=== PATIENT | female | born 1970 | race Hispanic/Latino ===

== ENCOUNTER 2019-10-17 22:05 | Inpatient (IN) | payer SELFPAY, OTHER ==
[~2019-10-17] VITALS: Ht 154.9 cm; Wt 78.9 kg
[2019-10-17] MEDS ORDERED: ONDANSETRON HCL INJ 2MG/ML 2ML 2 MG/ML VIAL IV STA (22:08)
[2019-10-17] MEDS ORDERED: SODIUM CHLORIDE 0.9% 1000ML 1,000 ML IV STA (22:08)
[2019-10-17] MEDS ORDERED: MORPHINE SULFATE INJ 4 MG/ML INJ 1ML IV STA (22:08)
--- OUTSIDE RECORDS SUMMARY | 2019-10-17 22:08 | XMS REPORT ---
Author Author [facility] Address Unknown Phone Unavailable Care Team Providers Care Instructional Media Services Technician Name Role Phone Unavailable Unavailable Payers Payer Name Policy Type Policy Number Effective Date Expiration Date Problems This patient has no known problems. Allergies, Adverse Reactions, Alerts Allergy Name Allergy Type Status Severity Reaction(s) Onset Date Inactive Date Treating Clinician Comments No Known Allergies DA Active U 2014-10-27 00:00:00 Medications This patient has no known medications. Results Test Description Test Time Test Comments Text Results Atomic Results Result Comments URINALYSIS COMPLETE 2019-08-15 22:24:00 UA COLOR (test code=COLU) YELLOW YELLOW UA APPEARANCE (test code=APPU) CLEAR CLEAR UA GLUCOSE DIPSTICK (test code=DGLUU) NEGATIVE mg/dL NEGATIVE UA BILIRUBIN DIPSTICK (test code=BILU) NEGATIVE mg/dL NEGATIVE UA KETONE DIPSTICK (test code=KETU) 10 (1+) mg/dL NEGATIVE UA SPECIFIC GRAVITY (test code=SGU) 1.037 1.001-1.035 UA BLOOD DIPSTICK (test code=AMINAH) Negative mg/dL NEGATIVE UA PH DIPSTICK (test code=RAFAEL) 5.5 5.0-8.0 UA PROTEIN DIPSTICK (test code=PROU) 50 (1+) mg/dL NEGATIVE UA UROBILINIOGEN DIPSTICK (test code=URO) 2.0 (1+) mg/dL NEGATIVE UA NITRITE DIPSTICK (test code=JENNIE) NEGATIVE NEGATIVE UA LEUKOCYTE ESTERASE W REFLEX (test code=LEUUR) 75 Vilma/uL (1+) Vilma/uL NEGATIVE UA WBC (test code=WBCU) 11-20 per HPF 0-5 UA RBC (test code=RBCU) 3-5 #/HPF 0-5 UA EPITHELIAL CELLS (test code=EPIU) FEW per HPF FEW UA BACTERIA (test code=BACU) NONE SEEN #/HPF NONE UA HYALINE CAST (test code=HYALU) >20 #/LPF 0-5 UA MUCUS (test code=MUCU) MANY #/LPF FEW UA AMORPHOUS SEDIMENT (test code=AMORU) FEW #/LPF NONE Urine Source? Clean CatchDRUGS OF ABUSE SCREEN [id number] 22:24:00* Test Item Value Reference Range Comments URN COCAINE (test code=COCAURN) NEGATIVE <300 ng/mL URN CANNABINOIDS (test code=CANNABURN) NEGATIVE <50 ng/mL URN AMPHETAMINE (test code=AMPHETURN) NEGATIVE <1000 ng/mL URN BARBITURATE (test code=BARBITURN) NEGATIVE <200 ng/mL URN BENZODIAZEPINE (test code=BENZOURN) NEGATIVE <200 ng/mL URN OPIATES (test code=OPIATURN) NEGATIVE <300 ng/mL URN PHENCYCLIDINE (PCP) (test code=PHENCURN) NEGATIVE <25 ng/mL URN METHADONE (test code=METHAURN) NEGATIVE <300 ng/mL Urine Source? Clean CatchURINALYSIS [id number] 22:00:00* Test Item Value Reference Range Comments UA COLOR (test code=COLU) YELLOW YELLOW UA APPEARANCE (test code=APPU) CLEAR CLEAR UA GLUCOSE DIPSTICK (test code=DGLUU) NEGATIVE mg/dL NEGATIVE UA BILIRUBIN DIPSTICK (test code=BILU) NEGATIVE mg/dL NEGATIVE UA KETONE DIPSTICK (test code=KETU) 10 (1+) mg/dL NEGATIVE UA SPECIFIC GRAVITY (test code=SGU) 1.037 1.001-1.035 UA BLOOD DIPSTICK (test code=AMINAH) Negative mg/dL NEGATIVE UA PH DIPSTICK (test code=RAFAEL) 5.5 5.0-8.0 UA PROTEIN DIPSTICK (test code=PROU) 50 (1+) mg/dL NEGATIVE UA UROBILINIOGEN DIPSTICK (test code=URO) 2.0 (1+) mg/dL NEGATIVE UA NITRITE DIPSTICK (test code=JENNIE) NEGATIVE NEGATIVE UA LEUKOCYTE ESTERASE W REFLEX (test code=LEUUR) 75 Vilma/uL (1+) Vilma/uL NEGATIVE UA WBC (test code=WBCU) 11-20 per HPF 0-5 UA RBC (test code=RBCU) 3-5 #/HPF 0-5 UA EPITHELIAL CELLS (test code=EPIU) FEW per HPF FEW UA BACTERIA (test code=BACU) NONE SEEN #/HPF NONE UA HYALINE CAST (test code=HYALU) >20 #/LPF 0-5 UA MUCUS (test code=MUCU) MANY #/LPF FEW UA AMORPHOUS SEDIMENT (test code=AMORU) FEW #/LPF NONE Urine Source? Clean CatchDRUGS OF ABUSE SCREEN [id number] 22:00:00* Test Item Value Reference Range Comments URN COCAINE (test code=COCAURN) <300 ng/mL URN CANNABINOIDS (test code=CANNABURN) <50 ng/mL URN AMPHETAMINE (test code=AMPHETURN) <1000 ng/mL URN BARBITURATE (test code=BARBITURN) <200 ng/mL URN BENZODIAZEPINE (test code=BENZOURN) <200 ng/mL URN OPIATES (test code=OPIATURN) <300 ng/mL URN PHENCYCLIDINE (PCP) (test code=PHENCURN) <25 ng/mL URN METHADONE (test code=METHAURN) <300 ng/mL Urine Source? Clean CatchBASIC METABOLIC [id number] 21:25:00* Test Item Value Reference Range Comments SODIUM (test code=NA) 143 mmol/L 136-145 POTASSIUM (test code=K) 4.0 mmol/L 3.5-5.1 CHLORIDE (test code=CL) 110.0 mmol/L 98-107 CARBON DIOXIDE (test code=CO2) 27.0 mmol/L 21-32 ANION GAP (test code=GAP) 10.0 10-20 GLUCOSE (test code=GLU) 122 mg/dL 74-106 BLOOD UREA NITROGEN (test code=BUN) 16 mg/dL 7-18 GLOMERULAR FILTRATION RATE (test code=GFR) > 60 mL/min >=60 Estimated GFR by using Modified MDRD formula.Chronic kidney disease is defined as either kidney damageor GFR <60 mL/min/1.73 m2 for >3 months. CREATININE (test code=CREAT) 0.90 mg/dL 0.55-1.02 Note change in reference range due to change in reagent. BUN/CREATININE RATIO (test code=BUN/CREA) 17.8 10-20 CALCIUM (test code=CA) 9.6 mg/dL 8.5-10.1 HEPATIC FUNCTION [id number] 21:25:00* Test Item Value Reference Range Comments TOTAL PROTEIN (test code=PROT) 7.7 gram/dL 6.4-8.2 ALBUMIN (test code=ALB) 3.8 g/dL 3.4-5.0 GLOBULIN (test code=GLOB) 3.9 gram/dL 2.7-4.2 ALBUMIN/GLOBULIN RATIO (test code=A/G) 1.0 0.75-1.50 BILIRUBIN TOTAL (test code=BILT) 1.20 mg/dL 0.0-1.0 BILIRUBIN DIRECT (test code=BILD) 0.19 mg/dL 0.0-0.20 SGOT/AST (test code=AST) 13 IUnit/L 15-37 SGPT/ALT (test code=ALT) 22 IUnit/L 12-78 ALKALINE PHOSPHATASE TOTAL (test code=ALKP) 91 IUnit/L 45-117 Note change in reference range due to change in reagent. [id number] 21:25:00* Test Item Value Reference Range Comments LIPASE (test code=LIP) 94 U/L 73.0-393.0 HCG SERUM [id number] 21:25:00* Test Item Value Reference Range Comments HCG SERUM QUAL (test code=HCGQL) NEGATIVE NEGATIVE This HCGQL test is NOT applicable for MALE patients.Check with nurse about probable order error.If Tumor Marker Test needed, nurse should order test "HCGTU"(Test #550.06567) [id number] 21:25:00* Test Item Value Reference Range Comments ALCOHOL (test code=ALC) 3 mg/dL 0.0-3.0 INTERPRETIVE DATA NOTE: POSITIVE SCREENING RESULTS SHOULD BE CONSIDERED PRESUMPTIVE.WHEN COLLECTED FOR MEDICAL PURPOSES ONLY. SPECIMEN WILL NOTBE COLLECTED BY CHAIN OF CUSTODY.IF A CONFIRMATION OF POSITIVE RESULTS IS DESIRED, ACONFIRMATION TEST MUST BE REQUESTED BY THE PHYSICIAN AT ANADDITIONAL CHARGE TO THE PATIENT. BASIC METABOLIC [id number] 21:11:00* Test Item Value Reference Range Comments SODIUM (test code=NA) 143 mmol/L 136-145 POTASSIUM (test code=K) 4.0 mmol/L 3.5-5.1 CHLORIDE (test code=CL) 110.0 mmol/L 98-107 CARBON DIOXIDE (test code=CO2) mmol/L 21-32 ANION GAP (test code=GAP) 10-20 GLUCOSE (test code=GLU) mg/dL 74-106 BLOOD UREA NITROGEN (test code=BUN) mg/dL 7-18 GLOMERULAR FILTRATION RATE (test code=GFR) mL/min >=60 CREATININE (test code=CREAT) mg/dL 0.55-1.02 BUN/CREATININE RATIO (test code=BUN/CREA) 10-20 CALCIUM (test code=CA) mg/dL 8.5-10.1 HEPATIC FUNCTION [id number] 21:11:00* Test Item Value Reference Range Comments TOTAL PROTEIN (test code=PROT) gram/dL 6.4-8.2 ALBUMIN (test code=ALB) g/dL 3.4-5.0 GLOBULIN (test code=GLOB) gram/dL 2.7-4.2 ALBUMIN/GLOBULIN RATIO (test code=A/G) 0.75-1.50 BILIRUBIN TOTAL (test code=BILT) mg/dL 0.0-1.0 BILIRUBIN DIRECT (test code=BILD) mg/dL 0.0-0.20 SGOT/AST (test code=AST) IUnit/L 15-37 SGPT/ALT (test code=ALT) IUnit/L 12-78 ALKALINE PHOSPHATASE TOTAL (test code=ALKP) IUnit/L 45-117 [id number] 21:11:00* Test Item Value Reference Range Comments LIPASE (test code=LIP) U/L 73.0-393.0 HCG SERUM [id number] 21:11:00* Test Item Value Reference Range Comments HCG SERUM QUAL (test code=HCGQL) NEGATIVE NEGATIVE This HCGQL test is NOT applicable for MALE patients.Check with nurse about probable order error.If Tumor Marker Test needed, nurse should order test "HCGTU"(Test #550.59918) [id number] 21:11:00* Test Item Value Reference Range Comments ALCOHOL (test code=ALC) mg/dL 0-3 BASIC METABOLIC [id number] 21:07:00* Test Item Value Reference Range Comments SODIUM (test code=NA) 143 mmol/L 136-145 POTASSIUM (test code=K) 4.0 mmol/L 3.5-5.1 CHLORIDE (test code=CL) 110.0 mmol/L 98-107 CARBON DIOXIDE (test code=CO2) mmol/L 21-32 ANION GAP (test code=GAP) 10-20 GLUCOSE (test code=GLU) mg/dL 74-106 BLOOD UREA NITROGEN (test code=BUN) mg/dL 7-18 GLOMERULAR FILTRATION RATE (test code=GFR) mL/min >=60 CREATININE (test code=CREAT) mg/dL 0.55-1.02 BUN/CREATININE RATIO (test code=BUN/CREA) 10-20 CALCIUM (test code=CA) mg/dL 8.5-10.1 HEPATIC FUNCTION [id number] 21:07:00* Test Item Value Reference Range Comments TOTAL PROTEIN (test code=PROT) gram/dL 6.4-8.2 ALBUMIN (test code=ALB) g/dL 3.4-5.0 GLOBULIN (test code=GLOB) gram/dL 2.7-4.2 ALBUMIN/GLOBULIN RATIO (test code=A/G) 0.75-1.50 BILIRUBIN TOTAL (test code=BILT) mg/dL 0.0-1.0 BILIRUBIN DIRECT (test code=BILD) mg/dL 0.0-0.20 SGOT/AST (test code=AST) IUnit/L 15-37 SGPT/ALT (test code=ALT) IUnit/L 12-78 ALKALINE PHOSPHATASE TOTAL (test code=ALKP) IUnit/L 45-117 [id number] 21:07:00* Test Item Value Reference Range Comments LIPASE (test code=LIP) U/L 73.0-393.0 HCG SERUM [id number] 21:07:00* Test Item Value Reference Range Comments HCG SERUM QUAL (test code=HCGQL) NEGATIVE [id number] 21:07:00* Test Item Value Reference Range Comments ALCOHOL (test code=ALC) mg/dL 0-3 CBC W/O [id number] 21:02:00* Test Item Value Reference Range Comments WHITE BLOOD CELL (test code=WBC) 8.5 K/mm3 4.5-12.5 RED BLOOD CELL (test code=RBC) 5.01 mill/mm3 3.7-5.2 HEMOGLOBIN (test code=HGB) 13.8 gram/dL 11.5-15.5 HEMATOCRIT (test code=HCT) 41.7 % 36.0-46.0 MEAN CELL VOLUME (test code=MCV) 83.2 fL 80-98 MEAN CELL HGB (test code=MCH) 27.5 picogram 27.0-33.0 MEAN CELL HGB CONCETRATION (test code=MCHC) 33.1 gram/dL 33.0-36.0 RED CELL DISTRIBUTION WIDTH (test code=RDW) 13.0 % 11.6-16.2 PLATELET COUNT (test code=PLT) 284 K/mm3 150-450 MEAN PLATELET VOLUME (test code=MPV) 10.2 fL 6.7-11.0 CBC W/O [id number] 21:01:00* Test Item Value Reference Range Comments WHITE BLOOD CELL (test code=WBC) K/mm3 4.5-12.5 RED BLOOD CELL (test code=RBC) mill/mm3 3.7-5.2 HEMOGLOBIN (test code=HGB) 13.8 gram/dL 11.5-15.5 HEMATOCRIT (test code=HCT) 41.7 % 36.0-46.0 MEAN CELL VOLUME (test code=MCV) fL 80-98 MEAN CELL HGB (test code=MCH) picogram 27.0-33.0 MEAN CELL HGB CONCETRATION (test code=MCHC) gram/dL 33.0-36.0 RED CELL DISTRIBUTION WIDTH (test code=RDW) % 11.6-16.2 PLATELET COUNT (test code=PLT) K/mm3 150-450 MEAN PLATELET VOLUME (test code=MPV) fL 6.7-11.0
[2019-10-17] MEDS ORDERED: ASPIRIN 81 MG CHEW TAB PO ONE (22:15)
[2019-10-17 22:30] LABS: BASOPHILS # (AUTO) 0.1 (0.0-0.1); BASOPHILS % 0.3 % (0.0-1.0); EOSINOPHILS % 0.1 % (0.0-6.0); HEMATOCRIT 41.4 % (34.2-44.1); HEMOGLOBIN 14.2 g/dL (12.0-16.0); LYMPHOCYTES # (AUTO) 1.8 (1.0-3.2); LYMPHOCYTES % 12.2 % (18.0-39.1); MEAN CORPUSCULAR HEMOGLOBIN 27.8 pg (28-32); MEAN CORPUSCULAR HGB CONC 34.3 g/dL (31-35); MEAN CORPUSCULAR VOLUME 81.2 fL (81-99); MONOCYTES # (AUTO) 0.3 (0.2-0.8); MONOCYTES % 1.8 % (4.4-11.3); NEUTROPHILS # (AUTO) 12.7 (2.1-6.9); NEUTROPHILS % 85.2 % (38.7-80.0); PLATELET COUNT 225 x10e3/uL (140-360); RED CELL DISTRIBUTION WIDTH 12.7 % (11.7-14.4)
[2019-10-17 22:42] LABS: CLARITY,URINE CLEAR (CLEAR); COLOR,URINE YELLOW (YELLOW); LEUKOCYTE ESTERASE ,URINE NEGATIVE (NEGATIVE)
[2019-10-17 22:43] LABS: BILIRUBIN,URINE NEGATIVE (NEGATIVE); KETONES,URINE 2+ (NEGATIVE); NITRITE,URINE NEGATIVE (NEGATIVE); PROTEIN,URINE DIPSTICK 1+ (NEGATIVE); URINE UROBILINOGEN 0.2 mg/dL (0.2 - 1)
[2019-10-17 22:51] LABS: ALANINE AMINOTRANSFERASE 23 IU/L (0-55); ALBUMIN 4.3 g/dL (3.5-5.0); ALBUMIN/GLOBULIN RATIO 1.1 (0.8-2.0); ALKALINE PHOSPHATASE 126 IU/L (40-150); ANION GAP 18.9 mmol/L (8-16); BACTERIA,URINE FEW /HPF; BLOOD UREA NITROGEN 14 mg/dL (7-26); BUN/CREATININE RATIO 12 (6-25); CALCIUM 10.4 mg/dL (8.4-10.2); CARBON DIOXIDE 25 mmol/L (22-29); CHLORIDE 99 mmol/L (98-107); CREATINE KINASE 60 IU/L (29-168); EPITHELIAL CELLS,URINE MODERATE /LPF; EST GLOMERULAR FILTRATION RATE 48 ML/MIN (60-); LIPASE 95 U/L (8-78); POTASSIUM 3.9 mmol/L (3.5-5.1); SODIUM 139 mmol/L (136-145)
[2019-10-17 23:03] LABS: GLUCOSE 543 mg/dL (74-118)
[2019-10-17] MEDS ORDERED: HYDRALAZINE HCL 20 MG/ML VIAL IV STA (23:13)
[2019-10-17] MEDS ORDERED: SODIUM CHLORIDE 0.9% 50ML 50 ML ONE (23:31)
[2019-10-17] MEDS ORDERED: IOPAMIDOL 370 MG/ML 200 ML INFUS..BTL INJ ONE (23:32)
[2019-10-18] VITALS (10 sets, daily range): BP systolic 137–156; BP diastolic 80–99
[2019-10-18] MEDS ORDERED: INSULIN REGULAR, HUMAN 100 UNIT/1 ML 3ML VIAL IV ONE (00:15)
--- NOTE | 2019-10-18 00:21 | NUR ---
(Lenard) left phone number if needed. [phone].
--- NOTE | 2019-10-18 00:34 | Diagnostic Imaging Report ---
ADDENDUM #1 ADDENDUM: The findings at the origin of the SMA are felt to more likely represent eccentric noncalcified atherosclerotic plaque (sagittal image 78), however intraluminal thrombus is not excluded, particularly in the absence of other atherosclerotic findings in other vessels. There are no findings of pneumatosis or free air to suggest ischemia. Furthermore, the distal celiac, SMA branches and SURESH branches appear patent. Given the recent contrast load, suggest clinical correlation, and follow-up CTA if clinically indicated. The above findings were discussed with Dr. García on 10/18/2019 at approximately 1:30 AM. Signed by: Dr. Zohra Pretty MD on 10/19/2019 11:33 PM ORIGINAL REPORT EXAM: CT Abdomen and Pelvis WITH contrast INDICATION: Abdominal Pain, nausea, vomiting. COMPARISON: None. TECHNIQUE: Abdomen and pelvis were scanned utilizing a multidetector helical scanner from the lung base to the pubic symphysis after administration of IV contrast. Coronal and sagittal reformations were obtained. Routine protocol was performed. Scan was performed during portal venous phase. IV CONTRAST: 100 cc of Isovue-370 ORAL CONTRAST: Water COMPLICATIONS: None RADIATION DOSE: Total DLP: (DLP x 0.015 x size factor) mGy*cm Estimated effective dose: (DLP x 0.015 x size factor) mSv CTDIvol has been reviewed. It is below the limits set by the Radiation Protocol Committee (RPC). FINDINGS: LINES and TUBES: None. LOWER THORAX: Mild linear atelectasis in the lingula. HEPATOBILIARY: Diffuse mild hepatic steatosis. Hepatomegaly. No evidence of focal lesion. No biliary ductal dilation. GALLBLADDER: No radio-opaque stones or sludge. No wall thickening. SPLEEN: No splenomegaly. PANCREAS: No focal masses or ductal dilatation. ADRENALS: No adrenal nodules KIDNEYS/URETERS: Kidneys enhance symmetrically. No evidence of hydronephrosis, solid mass, or stone. GI TRACT: No bowel obstruction. Decompression of jejunal loops with possible mild wall thickening. Decompressed colon. Appendix is normal. PELVIC ORGANS/BLADDER: Unremarkable. LYMPH NODES: No lymphadenopathy. VESSELS: There is a common origin of the celiac artery and SMA with noncalcified eccentric plaque at the origin/proximal aspect of the common trunk, resulting in moderate stenosis of the common trunk and origin of the SMA. The distal branches appear patent. The SURESH is patent. PERITONEUM / RETROPERITONEUM: No free air or fluid. BONES AND SOFT TISSUES: No acute osseous abnormality. Degenerative disc at T12-L1. CONCLUSION: Possible mild wall thickening in jejunal loops, which may represent infectious or inflammatory enteritis. Common origin of the celiac artery and SMA with likely noncalcified plaque at the origin/proximally, resulting in moderate stenosis at the common trunk and origin of the SMA. Hepatomegaly with hepatic steatosis. Signed by: Dr. Zohra Pretty MD on 10/18/2019 12:30 AM
[2019-10-18] MEDS ORDERED: HYDROMORPHONE 1MG/1ML INJ IV STA (00:54)
[2019-10-18] MEDS ORDERED: ONDANSETRON HCL INJ 2MG/ML 2ML 2 MG/ML VIAL IV STA (00:54)
[2019-10-18] MEDS ORDERED: SODIUM CHLORIDE 0.9% 1000ML 1,000 ML IV STA (00:55)
[2019-10-18] MEDS ORDERED: SODIUM CHLORIDE 0.9% 1000ML 1,000 ML IV ONE (01:00)
[2019-10-18] MEDS ORDERED: DEXTROSE 50% SYRINGE 50 ML IV PRN ×5 (01:00→09:15)
[2019-10-18] MEDS ORDERED: ASPIRIN 81 MG CHEW TAB PO ONE (01:00)
[2019-10-18] MEDS ORDERED: HYDROMORPHONE 1MG/1ML INJ ONE (01:13)
[2019-10-18] MEDS: PIPER-TAZ 3.375 GM 50 ML IV SCH ×5 (01:13→22:12)
[2019-10-18] MEDS: SODIUM CHLORIDE 0.9% 1000ML 1,000 ML IV SCH ×4 (01:38→20:03)
[2019-10-18] MEDS ORDERED: HYDRALAZINE HCL 20 MG/ML VIAL IV PRN (01:45)
--- NOTE | 2019-10-18 01:53 | NUR ---
Patient states she is a Yarsanism and cannot recieve blood products.
[2019-10-18] MEDS: MORPHINE SULFATE INJ 4 MG/ML INJ 1ML IV PRN ×5 (03:21→21:35)
[2019-10-18 06:07] LABS: CREATINE KINASE MB 1.6 ng/mL (0-5.0)
[2019-10-18 07:03] LABS: CHOL/HDL RATIO 7.2 (3.0-3.6); CHOLESTEROL 188 MD/DL (0-199); HDL CHOLESTEROL 26 MG/DL (40-60); TRIGLYCERIDES 654 MG/DL (0-149)
--- NOTE | 2019-10-18 07:14 | NUR ---
informed Dr. Jordan that patient c/o severe pain unrelieved by medication, orders received and entered
[2019-10-18] MEDS ORDERED: INSULIN REGULAR, HUMAN 100 UNIT/1 ML 3ML VIAL SQ SCH ×3 (07:30→11:30)
[2019-10-18 07:57] LABS: BASOPHILS % 0.2 % (0.0-1.0); HEMATOCRIT 41.7 % (34.2-44.1); LYMPHOCYTES # (AUTO) 1.1 (1.0-3.2); LYMPHOCYTES % 6.3 % (18.0-39.1); MEAN CORPUSCULAR HEMOGLOBIN 27.5 pg (28-32); MEAN CORPUSCULAR HGB CONC 33.6 g/dL (31-35); MEAN CORPUSCULAR VOLUME 81.9 fL (81-99); MONOCYTES # (AUTO) 0.4 (0.2-0.8); MONOCYTES % 2.1 % (4.4-11.3); NEUTROPHILS # (AUTO) 16.2 (2.1-6.9); NEUTROPHILS % 90.8 % (38.7-80.0); PLATELET COUNT 186 x10e3/uL (140-360); RED BLOOD COUNT 5.09 x10e6/uL (3.6-5.1); RED CELL DISTRIBUTION WIDTH 13.2 % (11.7-14.4)
[2019-10-18 08:24] LABS: ANION GAP 21.4 mmol/L (8-16); CALCIUM 9.6 mg/dL (8.4-10.2); CREATININE, SERUM 1.12 mg/dL (0.57-1.11); POTASSIUM 4.4 mmol/L (3.5-5.1)
--- NOTE | 2019-10-18 08:29 | History and Physical ---
CHIEF COMPLAINT: This is a 49-year-old, who comes in with abdominal pain. HISTORY OF PRESENTING ILLNESS: Ms. Blanchard with a history of uncontrolled diabetes mellitus, hyperlipidemia, hypertension, bipolar disease, was in her usual state of health until about the day prior to admission. The patient started to have abdominal pain, intractable in nature, about 8/10 in intensity. The patient did not have any rectal bleed. She did have some diarrhea after coming to the ER, but abdominal pain still continues with morphine on hand. PAST MEDICAL HISTORY: History of uncontrolled diabetes mellitus. The patient has had diabetes for the last 17 years and controlled, was taking metformin for diabetes, has decided to stopped about a year ago because of funding status. The patient also was on cholesterol medication, name unknown, but again stopped because of side effects of headache. The patient also was on bipolar medicine, Zyprexa, and she has been taking this for the last 1 month, which has made her sugars go up. PAST SURGICAL HISTORY: Noncontributory. SOCIAL HISTORY: No EtOH. No IV drug abuse. She is and has 4 children. No history of smoking history either. FAMILY HISTORY: Positive for diabetes in the family and hypertension in the family. REVIEW OF SYSTEMS: Negative for chest pain. No shortness of breath. No nausea. No vomiting. Positive for diarrhea. No constipation. No rectal bleeding. Abdominal pain as mentioned above. No headache. No diplopia. No blurry vision. Positive for thirst in excess of polyuria. PHYSICAL EXAMINATION: VITAL SIGNS: Temperature 97.2, pulse of 71, respirations of 14, blood pressure is 140/92. HEENT: Normocephalic and atraumatic. Pupils are reactive. CVS: S1 and S2 are normal. Regular rate and rhythm. ABDOMEN: Tender in the suprapubic area, in the periumbilical area, left lower quadrant, also in the epigastric area. EXTREMITIES: No clubbing. No cyanosis. No edema. The patient also has reported use of ceviche in excess right before this particular incident started. LABORATORY VALUES: White count is 14,000, hemoglobin of 14.2, hematocrit of 41.4. Chemistry shows sodium of 139, potassium of 3.9, BUN of 14, creatinine of 1.20, glucose of 543, bicarb was normal at 14. Troponin was less than 0.01. LDL and HDL have been ordered and lipase is 95. The patient's A1c will also be ordered. IMAGING STUDIES: Abdominal CT and pelvis CT shows possible mild wall thickening in the jejunal loops, which represent infectious or inflammatory enteritis. Common origin of the celiac artery and SMA with likely noncalcified plaque in the proximal resulting in moderate stenosis of the common trunk at the origin of SMA. Hepatomegaly with hepatic steatosis. ASSESSMENT: Ms. Lo Bentley with: 1. Colitis, presumably inflammatory versus infectious versus ischemic colitis. 2. Reflux esophagitis. We will continue with IV Protonix twice a day. The patient is also on Zosyn at this time q.6 hours. 3. For her insulin, I will put her on insulin glargine 18 units q.12 hours and also she is on a monitor with sliding scale. Hydralazine 10 mg q.4 hours has been given as needed for renal pathology for acute renal failure. Fluid resuscitation, we will do. We will continue to monitor the patient. Consults have been placed for Dr. David Pisano, Gastroenterology; Dr. Domingo, Surgery; and also a Cardiothoracic Surgery consult with Dr. Madison has been placed. Plan will be to check her A1c. Check her lipid panel, put on Protonix. Continue with Zosyn and pain control with morphine 4 mg q.4. further recommendation per clinical course. We will keep her in the IMCU. MD EVE MariaJ/MODL /[id number]
[2019-10-18] MEDS: PANTOPRAZOLE 40 MG 10ML VIAL IV SCH ×2 (08:56→16:54)
[2019-10-18] MEDS ORDERED: INSULIN GLARGINE 100 UNITS/ML VIAL SQ SCH (09:00)
[2019-10-18] MEDS: INSULIN GLARGINE 100 UNITS/ML VIAL SQ SCH ×2 (09:03→21:05)
[2019-10-18] MEDS: ONDANSETRON HCL INJ 2MG/ML 2ML 2 MG/ML VIAL IV PRN ×3 (10:50→21:35)
--- NOTE | 2019-10-18 10:54 | Consultation ---
DATE OF CONSULTATION: 10/18/2019 CHIEF COMPLAINT: Abdominal pain, vomiting. HISTORY OF PRESENT ILLNESS: The patient is a 49-year-old female with 1-day history of pain in epigastric region with intractable vomiting without hematemesis. The patient has had some loose stool, but denies fever or chills. She had no prior episode to this. No family member with the same symptoms. PAST MEDICAL HISTORY: Positive for metabolic syndrome, polycystic ovary disease, bipolar disorder. PAST SURGICAL HISTORY: Unremarkable. SOCIAL HABITS: She does not smoke or drink. REVIEW OF SYSTEMS: No chest pain, shortness of breath, or cough. PHYSICAL EXAMINATION: VITAL SIGNS: Stable, afebrile. GENERAL: She is awake, alert, in moderate discomfort. HEENT: Sclerae, anicteric. NECK: Supple. LUNGS: Clear. HEART: Regular rate and rhythm. ABDOMEN: Soft with guarding tenderness in epigastric region with no rebound. EXTREMITIES: No cyanosis or edema. LABORATORY DATA: White cell count is 17,000, hemoglobin of 14, and platelet count 186. Glucose 49, creatinine 1.1. Liver function tests are unremarkable with lipase 95. CT scan showed mild wall thickening of the jejunal loops, suggestive of an enteritis with findings of calcification at the origin of the celiac and SMA with patent distal branches. ASSESSMENT: Epigastric discomfort, vomiting likely enteritis in nature, infectious versus inflammatory. No evidence of chronic mesenteric ischemia by history. PLAN: IV hydrations. Monitored symptoms with GI consultation. MD KIMBERLEE Jones/LEIF /[id number]
[2019-10-18] MEDS: METRONIDAZOLE 500MG/NS 100ML 100 ML IV SCH ×3 (11:18→21:43)
--- NOTE | 2019-10-18 11:45 | NUR ---
per [employer] Consultant, informed that MRA abdomen can not be done at this time due to contrast given for previous CT not within time frame per Dr. Shaw called Dr. Sabina Pisano and informed that exam can not be done at this time, informed by automobile mechanic radiator that exam has been cancelled at this time and MD aware, patient scheduled for CT ABD/pelvis in am, no new orders at this time
[2019-10-18] MEDS: INSULIN REGULAR, HUMAN 100 UNIT/1 ML 3ML VIAL SQ SCH ×2 (12:25→18:14)
--- NOTE | 2019-10-18 19:35 | NUR ---
RECEIVED REPORT FROM [facility] NURSE- PATIENT TRANSFERRED TO [place] [address] ROOM 290 FROM [facility] RM 197. PATIENT IS IN STABLE CONDITION WITH NO S/S OF RESPIRATORY DISTRESS. TELEMETRY APPLIED. CALL LIGHT IS WITHIN REACH, PATIENT INSTRUCTED TO CALL FOR ASSISTANCE NEEDED. BEDSIDE SHIFT REPORT GIVEN TO ONCOMING NURSE.
[2019-10-18 20:18] LABS: HEMATOCRIT 42.5 % (34.2-44.1); HEMOGLOBIN 14.3 g/dL (12.0-16.0); LYMPHOCYTES # (AUTO) 1.5 (1.0-3.2); MEAN CORPUSCULAR HGB CONC 33.6 g/dL (31-35); MEAN CORPUSCULAR VOLUME 83.2 fL (81-99); MONOCYTES # (AUTO) 0.6 (0.2-0.8); NEUTROPHILS # (AUTO) 15.9 (2.1-6.9); PLATELET COUNT 199 x10e3/uL (140-360); RED BLOOD COUNT 5.11 x10e6/uL (3.6-5.1); RED CELL DISTRIBUTION WIDTH 13.9 % (11.7-14.4)
[2019-10-18 20:39] LABS: ALBUMIN/GLOBULIN RATIO 1.1 (0.8-2.0); ANION GAP 15.5 mmol/L (8-16); CALCIUM 9.4 mg/dL (8.4-10.2); CREATININE, SERUM 1.06 mg/dL (0.57-1.11); POTASSIUM 3.5 mmol/L (3.5-5.1)
[2019-10-18] MEDS ORDERED: LACTATED RINGER'S 1,000 ML ONE (21:10)
[2019-10-18] MEDS ORDERED: LACTATED RINGER'S 1,000 ML IV ONE (21:15)
[2019-10-19] VITALS (22 sets, daily range): BP systolic 126–155; BP diastolic 77–97
[2019-10-19] MEDS: INSULIN REGULAR, HUMAN 100 UNIT/1 ML 3ML VIAL SQ SCH ×4 (00:20→18:03)
[2019-10-19] MEDS: MORPHINE SULFATE INJ 4 MG/ML INJ 1ML IV PRN ×4 (01:32→18:00)
[2019-10-19] MEDS: ONDANSETRON HCL INJ 2MG/ML 2ML 2 MG/ML VIAL IV PRN ×3 (01:32→10:13)
[2019-10-19] MEDS: METRONIDAZOLE 500MG/NS 100ML 100 ML IV SCH ×3 (04:59→17:58)
[2019-10-19] MEDS: PIPER-TAZ 3.375 GM 50 ML IV SCH ×3 (05:35→17:58)
[2019-10-19 06:13] LABS: BASOPHILS % 0.2 % (0.0-1.0); EOSINOPHILS # (AUTO) 0.1 (0.0-0.4); EOSINOPHILS % 0.4 % (0.0-6.0); HEMATOCRIT 39.1 % (34.2-44.1); LYMPHOCYTES # (AUTO) 1.5 (1.0-3.2); LYMPHOCYTES % 8.2 % (18.0-39.1); MEAN CORPUSCULAR HGB CONC 33.2 g/dL (31-35); MEAN CORPUSCULAR VOLUME 84.3 fL (81-99); MONOCYTES % 5.3 % (4.4-11.3); NEUTROPHILS # (AUTO) 15.7 (2.1-6.9); NEUTROPHILS % 85.4 % (38.7-80.0); PLATELET COUNT 173 x10e3/uL (140-360); RED BLOOD COUNT 4.64 x10e6/uL (3.6-5.1)
[2019-10-19 06:34] LABS: ALANINE AMINOTRANSFERASE 59 IU/L (0-55); ALBUMIN 3.5 g/dL (3.5-5.0); ALKALINE PHOSPHATASE 89 IU/L (40-150); ANION GAP 11.2 mmol/L (8-16); BLOOD UREA NITROGEN 18 mg/dL (7-26); BUN/CREATININE RATIO 22 (6-25); CALCIUM 9.2 mg/dL (8.4-10.2); CARBON DIOXIDE 24 mmol/L (22-29); CHLORIDE 110 mmol/L (98-107); CREATININE, SERUM 0.83 mg/dL (0.57-1.11); EST GLOMERULAR FILTRATION RATE > 60 ML/MIN (60-); GLUCOSE 287 mg/dL (74-118); POTASSIUM 3.2 mmol/L (3.5-5.1); SODIUM 142 mmol/L (136-145)
[2019-10-19 07:05] LABS: CLARITY,URINE CLEAR (CLEAR); COLOR,URINE YELLOW (YELLOW); KETONES,URINE 2+ (NEGATIVE); LEUKOCYTE ESTERASE ,URINE NEGATIVE (NEGATIVE); NITRITE,URINE NEGATIVE (NEGATIVE); PROTEIN,URINE DIPSTICK 2+ (NEGATIVE); URINE UROBILINOGEN 0.2 mg/dL (0.2 - 1)
[2019-10-19 07:06] LABS: BILIRUBIN,URINE NEGATIVE (NEGATIVE)
[2019-10-19 07:26] LABS: BACTERIA,URINE FEW /HPF; EPITHELIAL CELLS,URINE FEW /LPF; RBC,URINE 0-5 /HPF (0-5); WBC,URINE (MAN) 0-5 /HPF (0-5)
--- NOTE | 2019-10-19 07:40 | NUR ---
PATIENT IS AWAKE, ALERT, AND AMBULATING IN HER ROOM. THE PATIENT IS IN STABLE CONDITION WITH NO S/S OF RESPIRATORY DISTRESS. PATIENT C/O UTERUS PAIN 3 AND IS NOT WANTING PAIN MEDICATION AT THIS TIME. TELEMETRY APPLIED. CALL LIGHT IS WITHIN REACH, PATIENT INSTRUCTED TO CALL FOR ASSISTANCE NEEDED.
--- NOTE | 2019-10-19 08:03 | Progress Note ---
DATE: SUBJECTIVE: The patient is admitted to the hospital with acute enteritis, possible ischemic colitis, but the patient does not have any symptoms of ischemic colitis besides pain. No chest pain or shortness of breath. Continues to have some abdominal pain. OBJECTIVE: VITAL SIGNS: Temperature is 98.7, T-max is 99.1 on 10/19/2019 at 0:00 a.m., pulse of 92, blood pressure is 152/77, respiratory rate of 20. HEENT: Normocephalic and atraumatic. CVS: S1 and S2 normal. Regular rate and rhythm. LUNGS: Clear to auscultation. ABDOMEN: Tender in the epigastrium and in the periumbilical area. EXTREMITIES : No clubbing. No cyanosis. No edema. MEDICATIONS: The patient is on morphine sulfate for pain control every 3 hours, Zosyn, metronidazole, pantoprazole, hydralazine as needed for control of blood pressure. She is kept n.p.o. at this time. LABORATORY VALUES: White count is about 18,000, hemoglobin of 13, hematocrit of 39.1, neutrophil count is still elevated at 85, but trending down. Chemistries; BUN of 18, creatinine 0.83, chloride is 110, total bilirubin is 2.5, elevated at 71 and 59. Troponin is negative. ASSESSMENT: Ms. Lo Bentley with. 1. Enteritis. 2. Questionable ischemic colitis. 3. Hypertension. 4. Uncontrolled diabetes mellitus. 5. Hyperlipidemia. PLAN: Continue monitoring the patient's glucose. Antibiotic has been ordered and administered. Trend her LFTs on a regular basis for elevated LFTs and continue to monitor the patient's pain and observing the patient has consultants on board, Dr. David Pisano, Dr. Domingo, and Dr. Madison. Further recommendation per clinical course. We will continue to monitor the patient. MD HERBERT Maria/BARRERAL /[id number]
[2019-10-19] MEDS: INSULIN GLARGINE 100 UNITS/ML VIAL SQ SCH ×2 (08:18→21:00)
[2019-10-19] MEDS: PANTOPRAZOLE 40 MG 10ML VIAL IV SCH ×2 (08:18→17:58)
--- NOTE | 2019-10-19 09:11 | Diagnostic Imaging Report ---
CT abdomen and pelvis without and with contrast (angiogram protocol) History: Superior mesenteric artery occlusion Comparison: CT abdomen and pelvis 10/17/2019 Technique: serial axial imaging was performed following up to 100cc of non ionic iodinated intravenous contrast as per departmental protocol. Multiplanar and three-dimensional reconstructed images are reviewed. This CT examination is performed using one or more of the following dose reduction techniques: Automated exposure control, adjustment of the mA and /or kV according to patient size, and/or use of iterative reconstruction technique. Findings: Unremarkable appearance of pancreas and spleen. Diffuse fatty infiltration of the liver. The liver and gallbladder are otherwise unremarkable. Unremarkable appearance of adrenal glands, kidneys, ureters, and urinary bladder. . Unremarkable appearance of the uterus and adnexa. A small amount of free fluid is seen within the pelvic cul-de-sac. The patient demonstrates a common origin of the celiac and superior mesenteric arteries. There is an acute thrombus within the origin of this vessel from the abdominal aorta, with near-complete luminal occlusion. However, distal flow is noted. The jejunal loops within the left upper quadrant appear more dilated and thickened compared to the previous study. There is a suspected early pneumatosis within the left upper quadrant small bowel. No free fluid or lymphadenopathy. No abdominal aortic aneurysm. No aggressive osseous lesion. 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 Jejunal loops within the left upper quadrant appear more dilated and thickened compared to the previous study with early pneumatosis, suggesting bowel ischemia. The above findings were discussed with Dr. Bañuelos at the time of this dictation. Signed by: Kvng Medina MD on 10/19/2019 9:08 AM
--- NOTE | 2019-10-19 09:15 | NUR ---
RECEIVED A CALL FROM DR. HONG REGARDING TODAY'S CT ABD RESULTS. NEW ORDERS RECEIVED TO CALL DR. ARORA AND DR. ANDRES TO INFORM OF CT ABD RESULTS. NEW ORDER RECEIVED TO CONSULT DR. Derrick HSU AND DR. 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 ORDER TO TRANSFER PATIENT TO IMCU OR ICU AND TO START HEPARIN SOON POSSIBLE.
--- NOTE | 2019-10-19 09:18 | NUR ---
CALL PLACED OUT TO DR. ARORA REGARDING TODAY'S CT RESULT- AWAITING CALLBACK.
--- NOTE | 2019-10-19 09:23 | NUR ---
VOICE MESSAGE LEFT FOR DR. ARORA ON HIS CELL PHONE REGARDING TODAY'S CT RESULTS- AWAITING CALLBACK.
[2019-10-19] MEDS ORDERED: HEPARIN 25,000 UNIT 1,100 UNIT in DEXTROSE 5% 250ML 250 ML IV SCH (09:30)
[2019-10-19] MEDS ORDERED: HEPARIN SOD (PORCINE) 5,000 UNIT/ML VIAL IV ONE (09:30)
--- NOTE | 2019-10-19 09:34 | NUR ---
CONSULTS FOR DR. Derrick HSU AND DR. GHOTRA CALLED REGARDING TODAY'S CT ABD/PELVIS. - AWAITING CALLBACKS. DR. ARMSTRONG ON THE UNIT AT THIS TIME.
--- NOTE | 2019-10-19 09:40 | NUR ---
GAVE PACKET OF INFORMATION WITH COMMUNITY [employer] FOR ASSISTANCE WITH LOW TO NO INCOME TO PATIENT. RESOURCES THAT PATIENT MAY BE ABLE TO FOLLOW UP UPON DISCHARGE. PT EDUCATED ON EACH RESOURCE AND UNDERSTANDING HOW TO FOLLOW UP TO SEE IF QUALIFIED FOR EACH RESOURCE.
--- NOTE | 2019-10-19 09:53 | NUR ---
REPORT GIVEN TO ICU NURSE. PATIENT TRANSFERRED TO ICU ROOM 192. PATIENT IS IN STABLE CONDITION WITH NO S/S OF RESPIRATORY DISTRESS. TELEMETRY APPLIED. IV HEPARIN INFUSING.
--- NOTE | 2019-10-19 09:54 | NUR ---
PAGE PLACED OUT TO DR. ANDRES BY JD EDWARDS, RANI, REGARDING TODAY'S CT ABD/PELVIS RESULTS. AWAITING CALLBACK.
[2019-10-19] MEDS ORDERED: SODIUM CHLORIDE 0.9% 100 ML ONE (09:58)
[2019-10-19] MEDS ORDERED: IOPAMIDOL 370 MG/ML 200 ML INFUS..BTL INJ ONE (09:58)
--- NOTE | 2019-10-19 10:06 | NUR ---
RECEIVED A CALLBACK FROM DR. ARORA- DR. ARORA WANTED TO SPEAK WITH THE RADIOLOGIST. DR. ARORA TRANSFERRED TO RADIOLOGY DEPT. CALLED TO INFORM ICU NURSE.
[2019-10-19] MEDS: LACTATED RINGER'S 1,000 ML IV SCH ×2 (10:51→17:39)
--- NOTE | 2019-10-19 11:00 | NUR ---
Dr. Madison notified of new consult and cta results. md will see patient this afternoon.
[2019-10-19] MEDS ORDERED: POTASSIUM CHLORIDE 20MEQ/100ML 200 ML IV ONE (11:45)
[2019-10-19 12:07] LABS: BAND NEUTROPHILS % (MANUAL) 1 %; LYMPHOCYTES % (MANUAL) 8 % (19-48); MONOCYTES % (MANUAL) 3 % (3.4-9.0); NEUTROPHILS % (MANUAL) 88 % (40-74); PLATELET ESTIMATE ADEQUATE; PLATELET MORPHOLOGY COMMENT NORMAL; RBC MORPHOLOGY COMMENT NORMAL
--- NOTE | 2019-10-19 13:35 | Consultation ---
DATE OF CONSULTATION: 10/19/2019 Cardiology Consultation REASON FOR CONSULTATION: Mesenteric ischemia. REQUESTING PHYSICIAN: Rashad Jordan MD HISTORY OF PRESENT ILLNESS: This is a 49-year-old woman with history of hypertension, hyperlipidemia, uncontrolled diabetes mellitus, and bipolar disease, who presents with complaints of abdominal pain. The patient was in her usual state of health until Wednesday when she developed abdominal pain, which she describes as burning/sharp in character up to 10/10 in severity. This was associated with nausea and vomiting. On evaluation in the ER, she was found to have mild thickening in the jejunal loops, which could represent infectious or inflammatory enteritis. There was a common origin of the celiac and SMA with noncalcified plaque at the origin proximally resulting in moderate stenosis at the common trunk and origin of the SMA. She then had CTA of the abdomen and pelvis done today, which revealed acute thrombus within the celiac/superior mesenteric artery, common origin. The jejunal loops were more dilated and thickened with early pneumatosis suggesting bowel ischemia. Cardiology was therefore consulted for further evaluation. The patient denies any chest pain, shortness of breath, palpitations, orthopnea or PND. REVIEW OF SYSTEMS: Negative except as per HPI. PAST MEDICAL HISTORY: Hyperlipidemia, hypertension, poorly controlled diabetes mellitus, bipolar disorder. PAST SURGICAL HISTORY: Denies. ALLERGIES: NO KNOWN DRUG ALLERGIES. MEDICATIONS: Please see medication list. SOCIAL HISTORY: Denies tobacco, alcohol or illicit drugs. FAMILY HISTORY: Denies. PHYSICAL EXAMINATION: VITAL SIGNS: Temperature 98.4 degrees, pulse 102, respiratory rate 17, blood pressure 144/80, oxygen saturation 98% on room air. GENERAL: Well-developed, well-nourished woman, in no acute distress. HEENT: Normocephalic, atraumatic. Pupils equal. No scleral icterus. NECK: Supple. No thyromegaly or cervical lymphadenopathy. No carotid bruits. LUNGS: Clear to auscultation bilaterally. No wheezes or crackles. CARDIOVASCULAR: Tachycardic, but regular. No murmur. Normal S1, S2. ABDOMEN: Soft, tender to palpation. Nondistended. EXTREMITIES: No edema. NEUROLOGIC: Nonfocal exam. LABORATORY DATA: WBC 18.43, hemoglobin 13, hematocrit 39.1, platelets 173. Sodium 142, potassium 3.2, chloride 110, CO2 of 24, BUN 18, creatinine 0.83. EKG; sinus bradycardia, otherwise normal ECG. IMPRESSION: 1. 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 2. Hypertension. 3. Hyperlipidemia. 4. Diabetes mellitus, poorly controlled. 5. Bipolar disorder. RECOMMENDATIONS: Keep patient n.p.o. The patient will be taken to the cardiac catheterization laboratory today for mesenteric angiogram and possible percutaneous intervention. Continue heparin drip. In the meantime, pain control. The patient will need to be started on fenofibrate given her high triglycerides, once she is able to tolerate oral p.o. intake. Glycemic control per primary. She will also need to be started on losartan once her diet is advanced. Monitor patient on telemetry while admitted. Thank you for this consult. We will continue to follow. Lorenza Velasquez MD ABS/MODL /[id number]
[2019-10-19] MEDS ORDERED: FENTANYL CITRATE/PF 100MCG/2 ML INJ ONE ×2 (15:44→16:01)
[2019-10-19] MEDS ORDERED: MIDAZOLAM HCL 2 MG/2 ML VIAL ONE (16:00)
[2019-10-19] MEDS ORDERED: HEPARIN SOD/SOD CHLORIDE 2,000 ML ONE (16:02)
[2019-10-19] MEDS ORDERED: LIDOCAINE HCL 2% LOCAL 20 ML VIAL ONE (16:02)
[2019-10-19] MEDS ORDERED: SODIUM CHLORIDE 0.9% 1000ML 1,000 ML ONE (16:02)
[2019-10-19] MEDS ORDERED: IOPAMIDOL 300MG/ML 100 ML INFUS..BTL IV ONE (16:02)
--- NOTE | 2019-10-19 16:16 | NUR ---
dr. carr spoke with patient for OR plan of care post laborer hoisting. pt just left to laborer hoisting for mesenteric angiogram. patient alert and oriented x3. anxious. following commands. heparin gtt and other infusions held for laborer hoisting at time of departure. pt consented herself for laborer hoisting and OR. patients Lenard, updated with plan of care this morning. both patient and spouse verbalized understanding of plan.
[2019-10-19] MEDS ORDERED: HEPARIN SOD (PORCINE) 1000 UNIT/ML 30ML ONE (16:37)
[2019-10-19] MEDS ORDERED: HEPARIN SOD/SOD CHLORIDE 1,000 ML ONE ×2 (16:38→20:35)
--- NOTE | 2019-10-19 17:42 | NUR ---
patient back in icu from cardiac cath lab technologist. right groin dsg clean and dry and intact. some swelling noted to site, area is soft and nontender.
--- NOTE | 2019-10-19 18:50 | History and Physical ---
Ms. Bentley is a 49-year-old female, referred to me for SMA thrombosis. I had gone through the records and the patient supposedly has very uncontrolled diabetes mellitus with blood sugars running higher than 500, history of hypertension, history of bipolar disorder, thrombosis of the celiac and SMA, which is supposedly acute by the scanning which she had. Dr. Lorenza Velasquez, a comber tender was consulted and also Dr. David Pisano, a locum tenens, and also Dr. Thomas Domingo, a surgeon. Dr. Lorenza Velasquez has taken the patient for angiography. Since the patient was in intensive care unit, bed 192 and since there are some COVID-19 patients in there, I had asked the administration if I could do virtual consultation. However, when I approached the people, who do set up for virtual set up, I was told she is in the brick and blocker aid labor. I went to the brick and blocker aid labor to see if I could talk to her, however, she was prepped and draped and the comber tender was going to do the intervention. I do agree with the intervention. I also agree with the heparin. I will follow the patient tomorrow. Hopefully, the outcome will be better. This is a note and not a consultation as best. This will require a physical examination. Jesus Mayorga MD MAQ/MODL /[id number] cc: MD Zoran Milian MD Abraham S John, MD David N Lam, MD Maurice S Haddad, MD
[2019-10-19] MEDS ORDERED: LIDOCAINE HCL 2% LOCAL INJ 5 ML SDV VIAL INJ ONE (19:45)
[2019-10-19] MEDS ORDERED: ROCURONIUM BROMIDE 10 MG/ML 5ML VIAL IV ONE (19:45)
[2019-10-19] MEDS ORDERED: PROPOFOL IV EMULSION 10 MG/ML 20 ML VIAL ONE (19:45)
[2019-10-19] MEDS ORDERED: SUCCINYLCHOLINE CHLORIDE 20 MG/ML 10ML VIAL ONE (19:45)
[2019-10-19] MEDS ORDERED: ACETAMINOPHEN 1000 MG/100 ML IV ONE (19:45)
[2019-10-19] MEDS ORDERED: ONDANSETRON HCL INJ 2MG/ML 2ML 2 MG/ML VIAL ONE (19:45)
[2019-10-19] MEDS ORDERED: DEXAMETHASONE SOD PHOS INJ 4 MG/ML VIAL ONE (19:45)
[2019-10-19] MEDS ORDERED: SEVOFLURANE INHAL SOLN 250 ML PEN BTL ONE (19:45)
[2019-10-19] MEDS ORDERED: PHENYLEPHRINE HCL 1% 10 MG/ML VIAL ONE (19:45)
[2019-10-19] MEDS ORDERED: ACETAMINOPHEN 1000 MG/100 ML 100 ML IV ONE (19:57)
[2019-10-19] MEDS ORDERED: SUGAMMADEX SODIUM 200 MG/2 ML VIAL IV ONE (19:58)
--- NOTE | 2019-10-19 20:53 | NUR ---
Called Dr. Domingo's answering service at 1957 regarding ACT result. No return call noted. Dr. Domingo, anesthesia, notified Dr. Domingo of ACT result and plan to proceed to OR tonight. Pt updated by MDs. Pt escorted off unit via bed at 2044 with OR team and Dr. Domingo, surgery.
--- NOTE | 2019-10-19 21:51 | Consultation ---
DATE OF CONSULTATION: 10/19/2019 REASON FOR CONSULTATION: Abdominal pain and vomiting; requested by Dr. Rashad Jordan. HISTORY OF PRESENT ILLNESS: She is a 49-year-old lady, who has diabetes, hyperlipidemia, bipolar disease, who developed abdominal pain about 24 hours prior to admission. The pain slowly asher in intensity and severity to approximately 8/10. There was no rectal bleeding. She had diarrhea after coming to the emergency room. Abdominal pain continued. She had a flatplate and a CT scan of the abdomen that was performed with contrast. This showed a thrombus in a common access of the celiac and SMA. However, there was acceptable perfusion beyond the thrombus. The inferior mesenteric artery and renal arteries appeared patent. There was no signs of any atherosclerosis. No fevers or chills. The patient has no history of irregular heartbeat. No PND or orthopnea. She has a long history of non insulin-dependent diabetes and has been taking metformin up until about a year ago when she could not afford it any longer. She takes statins and is on bipolar medications. Marriage And Family Teacher, Dr. Rashad Jordan. Calcine Furnace Loader is Dr. Velasquez. General surgeon is Dr. Domingo. PAST MEDICAL HISTORY: Positive for gcy-carxiof-hpudlhklf diabetes, hypercholesterolemia, bipolar disease. PAST SURGICAL HISTORY: Unremarkable. SOCIAL HISTORY: Negative for smoking, alcohol, or IV drug use. She is and has 4 children. FAMILY HISTORY: Positive diabetes. Negative for vascular disease. MEDICATIONS: Metformin, statin, and a med for her bipolar disorder. ALLERGIES: NONE KNOWN. REVIEW OF SYSTEMS: GENERAL: Positive for fatigue and malaise. NEUROLOGIC: Negative for focal weakness in extremities or dysarthria. HEENT: Negative for decreased hearing. CARDIAC: Negative for chest pain or palpitations. PULMONARY: Negative for shortness of breath or wheezing. GI: Positive for diarrhea and abdominal pain as above. : Negative for hematuria or dysuria. ENDOCRINE: Negative for polyuria or polydipsia. VASCULAR: Negative for claudication. SKIN: Negative for rashes or itching. HEMATOLOGIC: Negative for clotting or bleeding infections. Negative for fevers or sweating. PSYCHIATRIC: Negative for depression or anxiety. PHYSICAL EXAMINATION: GENERAL: Well-developed, well-nourished lady, lying flat in bed in the ICU. VITAL SIGNS: Blood pressure , respirations 16 and unlabored. NECK: Supple. Nontender. No JVD. CARDIAC: Shows a regular rate and rhythm. Normal S1 and S2. No S3, rub, or murmur. LUNGS: Clear to auscultation and percussion bilaterally. ABDOMEN: Tender, but there is no rebound. Tenderness . No palpable masses. Slightly distended. BACK: No CVA tenderness. No muscular spasm. EXTREMITIES: No cyanosis, clubbing, or edema. VASCULAR: Carotids, radials, and femorals 2+/2+ bilaterally. SKIN: No rashes or nonhealing ulcers. MUSCULOSKELETAL: Full range of motion at all joints. No joint swelling. NEUROLOGIC: Cranial nerves II through XII intact. Sensation intact to light touch and pinprick bilaterally. Strength 5/5 in all extremities. LYMPHATIC: Negative for cervical, clavicular, femoral adenopathy. LABORATORIES AND IMAGING: Abdominal CT, CTA of the abdomen, and mesenteric angiogram are all reviewed. She had a mesenteric angiogram was just completed about an hour ago. All the films are compatible with a thrombus in the common origin of the SMA and celiac axis. There was acceptable perfusion beyond the thrombus. Thrombectomy was performed in the catheterization laboratory with good result. White count 14.8, hemoglobin 14.2, hematocrit 41.4, platelet count 225,000. PTT 31.0. Sodium 147, potassium 3.5, BUN 18, creatinine 1.06. Liver function tests show slightly elevated AST and ALT at 71 and 59. Total bilirubin is elevated at 2.5. IMPRESSION: Thrombus at the origin of common celiac in origin. Thrombectomy performed. There was good perfusion beyond with no signs of acute abdomen. White count is normal. I agree with continued monitoring of the patient. After thrombectomy, hopefully perfusion will improve. Thank you very much for asking me to see this nice lady. MD MERRY Milian/LEIF /[id number]
--- NOTE | 2019-10-19 23:22 | Diagnostic Imaging Report ---
EXAMINATION: CHEST SINGLE (PORTABLE) INDICATION: Post right central line placement. COMPARISON: None FINDINGS: TUBES and LINES: Enteric tube terminates in the distal stomach. Right IJ central venous catheter terminates at the cavoatrial junction. LUNGS: Low lung volumes. Mild patchy bibasilar opacities, likely atelectasis. No evidence of lobar pneumonia or pulmonary edema. PLEURA: No pleural effusion or pneumothorax. HEART AND MEDIASTINUM: The cardiomediastinal silhouette is unremarkable. BONES AND SOFT TISSUES: No acute osseous lesion. Soft tissues are unremarkable. UPPER ABDOMEN: No free air under the diaphragm. [place] overlie the left upper abdomen. IMPRESSION: Right IJ central venous catheter terminates at the cavoatrial junction. No evidence of pneumothorax. Signed by: Dr. Zohra Pretty MD on 10/19/2019 11:18 PM
--- NOTE | 2019-10-19 23:31 | Operative Report ---
DATE OF PROCEDURE: 10/19/2019 SURGEON: Thomas Domingo MD PREOPERATIVE DIAGNOSIS: Ischemic bowel. POSTOPERATIVE DIAGNOSIS: Ischemic bowel. OPERATIVE PROCEDURE: Extensive small bowel resection. ANESTHESIA: General. INDICATION FOR SURGERY: This patient is a 49-year-old female with history of abdominal pain and CT scan revealing acute thrombus in the celiac/superior mesenteric artery origin with pneumatosis in the loops of a small intestine consistent with bowel ischemia. The patient initially underwent thrombectomy by Cardiology and then taken to the OR for exploratory laparotomy. PROCEDURE FINDING: Extensive small bowel ischemia which is irreversible approximately 1 cm sparing the proximal 1 m of jejunum with transmural ischemia of the ileum and the cecum. DESCRIPTION OF PROCEDURE: The patient was brought to the OR, intubated. Abdomen was prepped and draped in sterile fashion. A midline incision was made extending through linea alba entering the peritoneal cavity and brownish ascites removed, approximately 300 mL. The small bowel was examined. It was noted to be dusky particularly in the distal jejunum and ileum extending all the way to the mid ascending colon. We proceeded to resect the obvious segment of bowel ischemia starting approximately 1 m from the ligament of Treitz and continued to the mid ascending colon using BUSTER stapler to divide the bowel and the LigaSure instrument to take the mesentery. Smaller segment of jejunum is questionably viable and we decided to spare and preserve it for a second-look operation in the a.m. After small bowel and cecum removed from the operative field, which was then irrigated with 3 L saline solution. Hemostasis achieved. We then draped the omentum anteriorly before closing the fascia with a running #0 PDS. Skin closed with britt. The patient was extubated and transported to recovery room. BLOOD LOSS: 50 to 100 mL. Thomas Domingo MD DNL/MODL /[id number]
[2019-10-20] VITALS (24 sets, daily range): BP systolic 122–147; BP diastolic 59–92
[2019-10-20] MEDS ORDERED: SODIUM CHLORIDE 0.9% 250ML 250 ML ONE (00:20)
[2019-10-20] MEDS: METRONIDAZOLE 500MG/NS 100ML 100 ML IV SCH ×5 (00:20→23:43)
[2019-10-20] MEDS: INSULIN REGULAR, HUMAN 100 UNIT/1 ML 3ML VIAL SQ SCH ×4 (01:00→19:19)
[2019-10-20] MEDS: PIPER-TAZ 3.375 GM 50 ML IV SCH ×4 (01:19→18:26)
[2019-10-20] MEDS: LACTATED RINGER'S 1,000 ML IV SCH ×3 (01:45→18:25)
[2019-10-20] MEDS: SODIUM CHLORIDE 0.9% 250ML IRRIG IR SCH ×6 (04:00→23:08)
[2019-10-20 05:22] LABS: BASOPHILS % 0.2 % (0.0-1.0); EOSINOPHILS % 0.3 % (0.0-6.0); HEMATOCRIT 31.4 % (34.2-44.1); HEMOGLOBIN 10.2 g/dL (12.0-16.0); LYMPHOCYTES # (AUTO) 1.1 (1.0-3.2); LYMPHOCYTES % 10.1 % (18.0-39.1); MEAN CORPUSCULAR HEMOGLOBIN 28.1 pg (28-32); MEAN CORPUSCULAR HGB CONC 32.5 g/dL (31-35); MEAN CORPUSCULAR VOLUME 86.5 fL (81-99); MONOCYTES # (AUTO) 0.5 (0.2-0.8); MONOCYTES % 4.7 % (4.4-11.3); NEUTROPHILS # (AUTO) 9.1 (2.1-6.9); NEUTROPHILS % 84.6 % (38.7-80.0); PLATELET COUNT 159 x10e3/uL (140-360); RED BLOOD COUNT 3.63 x10e6/uL (3.6-5.1); RED CELL DISTRIBUTION WIDTH 14.3 % (11.7-14.4)
[2019-10-20 05:33] LABS: BLOOD UREA NITROGEN 11 mg/dL (7-26); BUN/CREATININE RATIO 16 (6-25); CARBON DIOXIDE 27 mmol/L (22-29); CHLORIDE 112 mmol/L (98-107); CREATININE, SERUM 0.69 mg/dL (0.57-1.11); EST GLOMERULAR FILTRATION RATE > 60 ML/MIN (60-); GLUCOSE 185 mg/dL (74-118); SODIUM 146 mmol/L (136-145)
--- NOTE | 2019-10-20 06:55 | NUR ---
Per Dr. Jordan, hold Lantus today. Resume scheduled Lantus doses tomorrow. Jasvir RN, day shift RN, informed.
[2019-10-20] MEDS ORDERED: POTASSIUM CHLORIDE 20MEQ/100ML 200 ML IV ONE (07:00)
[2019-10-20] MEDS: MORPHINE SULFATE INJ 4 MG/ML INJ 1ML IV PRN (07:24)
--- NOTE | 2019-10-20 08:11 | Progress Note ---
DATE: SUBJECTIVE: A 49-year-old female, who came in with abdominal pain, was found to have ischemic bowel. The patient was taken out of surgery yesterday. The patient is back in the ICU for monitoring. OBJECTIVE: VITAL SIGNS: Temperature is afebrile, pulse of 89, respirations 17, blood pressure is 133/77, pulse oximetry of 100% on 2 L. HEENT: Normocephalic and atraumatic. The patient has an NG tube to suction. CVS: S1 and S2 normal. Regular rate and rhythm. ABDOMEN: Soft. Incision, clean and dry. EXTREMITIES: No clubbing, no cyanosis, no edema. LAB[place]ATORY [place]: [place] [address] today, hemoglobin of 10.2, hematocrit of 31.4, neutrophil count is 84.6. Chemistries show sodium 146, potassium 3.0, BUN of 11, creatinine 0.69. ASSESSMENT: Ms. Lo Burnett with: Extensive small bowel ischemia, status post surgery for section. The patient is currently feeling better. The patient will be taken back to surgery today as per Dr. Guerrero. At this time, we will continue monitoring her vitals. We will continue her in the ICU. Antibiotics ongoing. The patient is getting insulin coverage at this time. Further recommendation per clinical course. We will continue to monitor the patient. MD HERBERT Maria/MODL /[id number]
[2019-10-20] MEDS: PANTOPRAZOLE 40 MG 10ML VIAL IV SCH ×2 (08:23→18:25)
[2019-10-20] MEDS: INSULIN GLARGINE 100 UNITS/ML VIAL SQ SCH ×2 (09:00→21:16)
--- NOTE | 2019-10-20 11:36 | NUR ---
Called and spoke with Dr Mayorga's office, verified physician was notified of consult.
[2019-10-20] MEDS ORDERED: SEVOFLURANE INHAL SOLN 250 ML PEN BTL ONE (11:37)
[2019-10-20] MEDS ORDERED: ONDANSETRON HCL INJ 2MG/ML 2ML 2 MG/ML VIAL ONE ×2 (11:37→16:35)
[2019-10-20] MEDS ORDERED: DEXAMETHASONE SOD PHOS INJ 4 MG/ML VIAL ONE (11:37)
[2019-10-20] MEDS ORDERED: LIDOCAINE HCL 2% LOCAL INJ 5 ML SDV VIAL INJ ONE (11:37)
[2019-10-20] MEDS ORDERED: PROPOFOL IV EMULSION 10 MG/ML 20 ML VIAL ONE (11:37)
[2019-10-20] MEDS ORDERED: SUCCINYLCHOLINE CHLORIDE 20 MG/ML 10ML VIAL ONE (11:37)
--- NOTE | 2019-10-20 13:03 | Progress Note ---
DATE: 10/20/2019 Cardiology Progress Note SUBJECTIVE: The patient denies chest pain or shortness of breath. She underwent mesenteric angiogram with thrombectomy yesterday followed by exploratory laparotomy with small-bowel resection. OBJECTIVE: VITAL SIGNS: Temperature 98.5 degrees, pulse 98, respiratory rate 16, blood pressure 131/74, oxygen saturation 100% on 1 L nasal cannula. GENERAL: Awake, alert, in no acute distress. LUNGS: Clear to auscultation bilaterally. No wheezes or crackles. CARDIOVASCULAR: Normal rate. Regular rhythm. No murmur. Normal S1 and S2. ABDOMEN: Soft, tender to palpation. Nondistended. EXTREMITIES: No edema. CARDIAC MEDICATIONS: None. LABORATORY DATA: WBC 10.72, hemoglobin 10.2, hematocrit 31.4, platelets 159. Sodium 146, potassium 3, chloride 112, CO2 of 27, BUN 11, creatinine 0.69. Telemetry was personally reviewed and interpreted revealing normal sinus rhythm. IMPRESSION: 1. 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 2. Hypertension. 3. Hyperlipidemia. 4. Diabetes mellitus, poorly controlled. 5. Bipolar disorder. RECOMMENDATIONS: The patient is status post exploratory laparotomy and small-bowel resection. She will return to the OR as planned today to re-evaluate for further ischemia. We will continue to monitor patient on telemetry. Heparin is currently on hold due to recent surgery. Once she is able to tolerate p.o. intake, recommended she be started on fenofibrate given her high triglycerides. Glycemic control per primary. Monitor blood pressure closely. Consider starting losartan if she becomes more hypertensive. Thank you for this consult. We will continue to follow. Lorenza Velasquez MD ABS/MODL /[id number]
--- NOTE | 2019-10-20 14:02 | NUR ---
Pt has consented to second laparotomy. Pt out to OR with surgery staff.
[2019-10-20] MEDS ORDERED: ALBUMIN 25% 12.5GM 50ML 100 ML IV ONE (14:25)
[2019-10-20] MEDS ORDERED: CEFOXITIN 1GM/ D5W 50ML 50 ML IV ONE (14:45)
[2019-10-20] MEDS ORDERED: MIDAZOLAM HCL 2 MG/2 ML VIAL ONE (16:04)
[2019-10-20] MEDS ORDERED: FENTANYL CITRATE/PF 100MCG/2 ML INJ ONE (16:04)
--- NOTE | 2019-10-20 22:44 | Operative Report ---
DATE OF PROCEDURE: 10/20/2019 SURGEON: Thomas Domingo MD PREOPERATIVE DIAGNOSIS: Ischemic bowel. POSTOPERATIVE DIAGNOSIS: Ischemic bowel. OPERATIVE PROCEDURE: Second-look laparotomy and intestinal resection. ANESTHESIA: General. INDICATION: A 49-year-old female with history of thrombosis at the celiac, SMA axis, status post thrombectomy. The patient underwent exploratory laparotomy yesterday with extensive bowel resection. She is taken back for a second-look laparotomy with possible further resection and anastomosis. DESCRIPTION OF PROCEDURE: The patient was brought to the OR, intubated. Abdomen was prepped and draped in sterile fashion. The previous midline incision was reopened. Entering the peritoneal cavity, some serosanguineous peritoneal fluid was countered. The loops of small bowel were then reexamined. In the mid jejunum, there was approximately 5 cm of small bowel that look ischemic and 5 cm was removed using the BUSTER stapler and LigaSure instrument. We then performed anastomosis between the jejunal loop using 2 layers hand-sewn anastomosis with external layer of 3-0 silk seromuscular stitch and running internal layers of 3-0 PDS. The distal end of the jejunal loop was then anastomosed to the proximal transverse colon, again with 2 layers anastomosis using 3-0 silk seromuscular stitch and a running inner layers of 3-0 PDS. Operative field was irrigated with copious saline solution. Hemostasis was achieved. The omentum was then draped on top of the small bowel and abdomen closed with a running #0 PDS and skin was closed with britt. The patient then extubated and transferred to recovery room. Blood loss approximately 20 mL. Thomas Domingo MD DNL/MODL /[id number]
[2019-10-21] VITALS (24 sets, daily range): BP systolic 112–144; BP diastolic 58–91
[2019-10-21] MEDS: PIPER-TAZ 3.375 GM 50 ML IV SCH ×4 (00:47→17:21)
--- NOTE | 2019-10-21 01:00 | NUR ---
01:00-Paged Dr. Domingo to ask if pt can be started on heparin now per Dr. Sabina Pisano's request. Ordered that it was okay for heparin and to get dosage from Dr. Pisano. 01:10-Dr. Sabina Pisano ordered to start pt back on the heparin gtt from previous order at same rate that was initiated then and to check pt's PTT in am. Also ordered for dayshift to speak to Dr. Mayorga to verify this is what anticoagulant is wanted. Pt started on heparin at 1,100 units/hr.
[2019-10-21] MEDS ORDERED: HEPARIN 25,000 UNIT 25,000 UNIT in DEXTROSE 5% 250ML 250 ML IV SCH (01:15)
[2019-10-21] MEDS ORDERED: HEPARIN 25,000 UNIT DRIP IV ONE (01:29)
[2019-10-21] MEDS: SODIUM CHLORIDE 0.9% 250ML IRRIG IR SCH ×6 (02:07→23:11)
[2019-10-21] MEDS: INSULIN REGULAR, HUMAN 100 UNIT/1 ML 3ML VIAL SQ SCH ×4 (06:00→17:37)
[2019-10-21 06:13] LABS: BASOPHILS % 0.2 % (0.0-1.0); HEMATOCRIT 24.5 % (34.2-44.1); HEMOGLOBIN 7.8 g/dL (12.0-16.0); LYMPHOCYTES # (AUTO) 1.9 (1.0-3.2); LYMPHOCYTES % 18.3 % (18.0-39.1); MEAN CORPUSCULAR HEMOGLOBIN 27.9 pg (28-32); MEAN CORPUSCULAR HGB CONC 31.8 g/dL (31-35); MEAN CORPUSCULAR VOLUME 87.5 fL (81-99); MONOCYTES # (AUTO) 0.4 (0.2-0.8); MONOCYTES % 4.1 % (4.4-11.3); NEUTROPHILS % 76.5 % (38.7-80.0); PLATELET COUNT 137 x10e3/uL (140-360); RED CELL DISTRIBUTION WIDTH 14.2 % (11.7-14.4)
[2019-10-21] MEDS: METRONIDAZOLE 500MG/NS 100ML 100 ML IV SCH ×3 (06:14→17:20)
[2019-10-21] MEDS: LACTATED RINGER'S 1,000 ML IV SCH ×3 (06:14→16:29)
[2019-10-21 06:30] LABS: ANION GAP 9.6 mmol/L (8-16); BLOOD UREA NITROGEN 9 mg/dL (7-26); BUN/CREATININE RATIO 14 (6-25); CARBON DIOXIDE 31 mmol/L (22-29); CHLORIDE 105 mmol/L (98-107); CREATININE, SERUM 0.66 mg/dL (0.57-1.11); EST GLOMERULAR FILTRATION RATE > 60 ML/MIN (60-); GLUCOSE 122 mg/dL (74-118); SODIUM 143 mmol/L (136-145)
[2019-10-21 06:32] LABS: POTASSIUM 2.6 mmol/L (3.5-5.1)
--- NOTE | 2019-10-21 06:44 | NUR ---
Page out to Dr. Jordan regarding critical potassium. Awaiting call back.
[2019-10-21] MEDS ORDERED: POTASSIUM CHLORIDE 20MEQ/100ML 200 ML IV ONE ×3 (07:30→18:00)
[2019-10-21] MEDS: MORPHINE SULFATE INJ 4 MG/ML INJ 1ML IV PRN ×2 (08:22→22:35)
[2019-10-21] MEDS ORDERED: IRON DEXTRAN INJ 500 MG in SODIUM CHLORIDE 0.9% 500ML 500 ML IV PRN (08:45)
[2019-10-21] MEDS ORDERED: SODIUM CHLORIDE 0.9% 250ML 250 ML IV ONE (09:00)
--- NOTE | 2019-10-21 09:03 | NUR ---
Dr Mayorga has been in with pt. New orders to DC the heparin, change to lovenox. Dr Mayorga has also ordered for blood transfusion, he has now ordered to discontinue the order after speaking with the pt and her refusal for blood products. He has ordered for high dose procrit.
[2019-10-21] MEDS: PANTOPRAZOLE 40 MG 10ML VIAL IV SCH ×2 (09:26→16:29)
[2019-10-21] MEDS: ENOXAPARIN INJ 80 MG/0.8 ML SYR SC SCH ×2 (09:27→20:37)
[2019-10-21] MEDS: INSULIN GLARGINE 100 UNITS/ML VIAL SQ SCH ×2 (09:27→20:47)
[2019-10-21 09:52] LABS: BASOPHILS % 0.3 % (0.0-1.0); EOSINOPHILS % 0.1 % (0.0-6.0); HEMATOCRIT 24.6 % (34.2-44.1); HEMOGLOBIN 7.9 g/dL (12.0-16.0); LYMPHOCYTES % 19.1 % (18.0-39.1); MEAN CORPUSCULAR HEMOGLOBIN 28.1 pg (28-32); MEAN CORPUSCULAR HGB CONC 32.1 g/dL (31-35); MEAN CORPUSCULAR VOLUME 87.5 fL (81-99); MONOCYTES # (AUTO) 0.5 (0.2-0.8); MONOCYTES % 4.5 % (4.4-11.3); NEUTROPHILS # (AUTO) 7.7 (2.1-6.9); PLATELET COUNT 150 x10e3/uL (140-360); RED BLOOD COUNT 2.81 x10e6/uL (3.6-5.1); RED CELL DISTRIBUTION WIDTH 14.1 % (11.7-14.4)
--- NOTE | 2019-10-21 10:10 | Progress Note ---
DATE: SUBJECTIVE: The patient came in with bowel ischemia, taken down by Dr. Domingo and had a second-look laparotomy and intestinal resection yesterday. The patient is doing well in the ICU, is on NG tube to suction. Complains of abdominal pain. No chest pain. No shortness of breath. Feeling better from yesterday. OBJECTIVE: VITAL SIGNS: In the ICU, temperature is 98.0, pulse of 86, respirations of 15, blood pressure is 131/78, pulse oximetry of 95% on room air. HEENT: Normocephalic. NG tube to suction. CVS: S1 and S2 are normal. Regular rate and rhythm. ABDOMEN: Bowel sounds negative. EXTREMITIES: No clubbing, no cyanosis. Trace edema. LABORATORY VALUES: White count is 10.40, hemoglobin 7.8, hematocrit of 24.5, platelet count is 137, neutrophil count 76.5. Chemistry shows sodium of 143, potassium of 2.6, BUN of 9, creatinine 0.66, glucose is noted in the 120s to 160s, calcium is 8. Chest x-ray done yesterday, right IJ in place. No evidence of pneumothorax. ASSESSMENT: Ms. Lo Bentley is a 49-year-old with small bowel ischemia, status post second-look laparotomy and resection. The patient is stable. Vitals are stable. Replacement of potassium will be done. Hemoglobin will be looked at and we will continue to monitor the patient and coronavirus disease 2019 will also be done secondary to coagulatory effects of coronavirus disease 2019. The patient has been started on heparin for the SMA blockage. The patient currently is on metronidazole, Zosyn, and heparin drip. Insulin has been instituted. Further recommendation per clinical course. We will continue to monitor the patient. MD HERBERT Maria/MODL /[id number]
[2019-10-21] MEDS ORDERED: FAMOTIDINE INJ 20 MG in SODIUM CHLORIDE 0.9% 50ML 50 ML IV ONE (10:30)
[2019-10-21] MEDS ORDERED: DIPHENHYDRAMINE HCL INJ 25 MG in SODIUM CHLORIDE 0.9% 50ML 50 ML IV ONE (10:30)
--- NOTE | 2019-10-21 10:41 | Progress Note ---
DATE: Cardiology Progress Note SUBJECTIVE: The patient reports some abdominal discomfort and fatigue. Denies any chest pain or shortness of breath. OBJECTIVE: VITAL SIGNS: Temperature 98.0, pulse 86, respiratory rate 15, blood pressure 131/78, oxygen saturation 95% on room air. GENERAL: Alert and oriented x3, resting in bed, does not appear to be in acute distress, however, endorses abdominal pain. NECK: Supple. No JVD noted. LUNGS: Clear to auscultation throughout. No wheezing, no rhonchi or crackles. CARDIOVASCULAR: Normal rate and rhythm. No murmurs, no gallop. ABDOMEN: Very tender, nondistended. Hypoactive bowel sounds. EXTREMITIES: Lower extremity; trace edema bilaterally. CARDIOVASCULAR MEDICATIONS: 1. Potassium chloride IV replacement. 2. Heparin IV drip. LABORATORY DATA: WBC 10.41, hemoglobin 7.8, hematocrit 24.5, platelets 137. Sodium 143, potassium 2.6, BUN 9, creatinine 0.66, glucose 122, calcium 8.0, PTT 78.9, D-dimer 1450 yesterday. TELEMETRY: Normal sinus rhythm. IMPRESSION: 1. 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 2. Hypertension. 3. Hyperlipidemia. 4. Diabetes mellitus, poorly controlled. 5. Bipolar disorder. RECOMMENDATION: This patient is status post exploratory laparotomy and small-bowel resection. She returned to the OR yesterday for further re-evaluation of ischemia. Now, heparin has been resumed. Continue to monitor PTT closely and anemia. Once this patient is able to tolerate p.o., we would recommend resuming fenofibrate given her high triglycerides. Glycemic control per primary team. Continue to monitor blood pressure closely. If blood pressure becomes poorly controlled, we will resume losartan. For now, continue to monitor. Dictated by Olya Lazar, MISAEL MD TYESHA Franklin/LEIF /[id number]
[2019-10-21] MEDS ORDERED: DEXAMETHASONE PHOS 10MG INJ 20 MG in SODIUM CHLORIDE 0.9% 50ML 50 ML IV ONE (11:00)
[2019-10-21] MEDS ORDERED: IRON DEXTRAN INJ 50 MG in SODIUM CHLORIDE 0.9% 100 ML IV ONE (12:00)
--- NOTE | 2019-10-21 13:47 | NUR ---
Noted cardiac arrhythmia after test dose of iron dextran. Sinus arrhythmia with HR ranging from 59 to 80 and additional random p waves are noted. Verified with second MARY Deleon from ER. Called and spoke with Dr Mayorga. The iron dextran is discontinued. Addendum: 10/21/19 at 1352 by Jasvir Cleary RN Pt continues to deny complaints when asked.
[2019-10-21] MEDS ORDERED: CYANOCOBALAMIN INJ 1,000 MCG/ML VIAL IM ONE (20:30)
[2019-10-21 21:35] LABS: FERRITIN 429.74 ng/mL (4.63-204.00)
[2019-10-22] VITALS (18 sets, daily range): BP systolic 104–152; BP diastolic 64–90
[2019-10-22] MEDS: METRONIDAZOLE 500MG/NS 100ML 100 ML IV SCH ×5 (00:46→23:01)
[2019-10-22] MEDS: PIPER-TAZ 3.375 GM 50 ML IV SCH ×4 (00:46→18:12)
[2019-10-22] MEDS: LACTATED RINGER'S 1,000 ML IV SCH ×3 (04:15→17:45)
[2019-10-22] MEDS: SODIUM CHLORIDE 0.9% 250ML IRRIG IR SCH ×6 (04:15→23:01)
[2019-10-22 05:59] LABS: BASOPHILS % 0.2 % (0.0-1.0); HEMATOCRIT 24.1 % (34.2-44.1); HEMOGLOBIN 7.8 g/dL (12.0-16.0); LYMPHOCYTES # (AUTO) 1.2 (1.0-3.2); LYMPHOCYTES % 12.5 % (18.0-39.1); MEAN CORPUSCULAR HEMOGLOBIN 27.8 pg (28-32); MEAN CORPUSCULAR HGB CONC 32.4 g/dL (31-35); MEAN CORPUSCULAR VOLUME 85.8 fL (81-99); MONOCYTES # (AUTO) 0.3 (0.2-0.8); MONOCYTES % 3.2 % (4.4-11.3); NEUTROPHILS % 82.3 % (38.7-80.0); PLATELET COUNT 191 x10e3/uL (140-360); RED BLOOD COUNT 2.81 x10e6/uL (3.6-5.1); RED CELL DISTRIBUTION WIDTH 13.7 % (11.7-14.4)
[2019-10-22] MEDS: INSULIN REGULAR, HUMAN 100 UNIT/1 ML 3ML VIAL SQ SCH ×4 (06:37→18:00)
--- NOTE | 2019-10-22 06:44 | NUR ---
Per Dr. Jordan, Dr. Chisholm wanted a COVID-19 swab ordered on this patient yesterday. New orders noted, test will be performed today and isolation will be initiated.
[2019-10-22 07:28] LABS: ANION GAP 11.1 mmol/L (8-16); BLOOD UREA NITROGEN 13 mg/dL (7-26); BUN/CREATININE RATIO 20 (6-25); CALCIUM 8.3 mg/dL (8.4-10.2); CARBON DIOXIDE 28 mmol/L (22-29); CHLORIDE 105 mmol/L (98-107); CREATININE, SERUM 0.65 mg/dL (0.57-1.11); EST GLOMERULAR FILTRATION RATE > 60 ML/MIN (60-); GLUCOSE 124 mg/dL (74-118); POTASSIUM 3.1 mmol/L (3.5-5.1); SODIUM 141 mmol/L (136-145)
[2019-10-22] MEDS ORDERED: POTASSIUM CHLORIDE 20MEQ/100ML 200 ML IV ONE (09:00)
[2019-10-22] MEDS: CYANOCOBALAMIN INJ 1,000 MCG/ML VIAL IM SCH (09:01)
[2019-10-22] MEDS: PANTOPRAZOLE 40 MG 10ML VIAL IV SCH ×2 (09:02→18:12)
[2019-10-22] MEDS: ENOXAPARIN INJ 80 MG/0.8 ML SYR SC SCH ×2 (09:02→21:34)
[2019-10-22] MEDS: INSULIN GLARGINE 100 UNITS/ML VIAL SQ SCH ×2 (09:03→21:35)
--- NOTE | 2019-10-22 09:19 | Progress Note ---
DATE: SUBJECTIVE: A 49-year-old female, who comes in with ischemic colitis. The patient is in the ICU, status post revision laparotomy with resection. The patient is feeling better. NG tube is in place. No chest pain or shortness of breath. Complains of some throat pain, other than that the patient is doing better. OBJECTIVE: VITAL SIGNS: Temperature is afebrile, pulse of 64, respirations of 14, blood pressure is 147/80, pulse oximetry of 99% on room air. HEENT: Normocephalic and atraumatic. NG tube in place to suction. CVS: S1 and S2 are normal. Regular rate and rhythm. ABDOMEN: Nontender. No distention present. The patient's surgical wound is clean and dry. EXTREMITIES: No clubbing, no cyanosis, no edema. LABORATORY VALUES: From today white count is 9.69, hemoglobin 7.8, hematocrit of 24.1. Chemistries are pending. Potassium was 2.6 earlier. TIBC of 174, iron of 48, ferritin of 429. ASSESSMENT: Ms. Blanchard with ischemic colitis, status post resection and revision. PLAN: 1. Continue with IV antibiotic. Currently, she is on Zosyn. 2. Uncontrolled diabetes mellitus. Continue insulin glargine. The patient's blood sugars have been running in the 150s to 130s. 3. Hypertension. We will continue to monitor the patient. 4. Hyperlipidemia. Continue monitoring. 5. Bipolar disease. Continue monitoring. Further recommendation per clinical course. We will continue to monitor the patient along with the consultants. The patient is also on Lovenox 1 mg/kg twice a day, has been taken off her heparin. MD HERBERT Maria/MODL /[id number]
--- NOTE | 2019-10-22 10:49 | Progress Note ---
DATE: Cardiology Progress Note SUBJECTIVE: The patient is without any new complaints this morning, however, she does endorse some abdominal pain after surgery. Denies any shortness of breath or chest pain. OBJECTIVE: VITAL SIGNS: Temperature 98.7, pulse 70, oxygen 95% on room air, blood pressure 142/76, and respiratory rate 13. GENERAL: Alert and oriented x3, resting in bed. Does not appear to be in any acute distress at this point. NECK: Supple. No JVD noted. LUNGS: Clear to auscultation throughout. No wheezing. No rhonchi or crackles. CARDIOVASCULAR: Normal rate and rhythm. No murmurs. No gallops. ABDOMEN: Quite tender. Hypoactive bowel sounds. EXTREMITIES: Lower extremity, trace edema bilaterally. LABORATORY DATA: WBC 9.69, hemoglobin 7.8, hematocrit 24.1, and platelets 191. Sodium 141, potassium 3.1, BUN 13, creatinine 0.65, and calcium 8.3. TELEMETRY: Normal sinus rhythm. IMPRESSION: 1. Acute thrombus within the celiac and superior mesenteric artery with mesenteric ischemia, now status post surgery. 2. Hypertension. 3. Hyperlipidemia. 4. Diabetes mellitus, poorly controlled. 5. Bipolar disorder. RECOMMENDATIONS: This patient is status post exploratory laparotomy and small bowel resection. Continues to recover from surgery. Monitor anemia closely. Replace electrolytes as needed. Potassium replaced this morning. Continues to be on heparin drip. Monitor PTT closely. Once this patient is able to take p.o. medications, we will consider resuming fenofibrate given her high triglycerides. Glycemic control per primary team. Continue to monitor blood pressure very closely. If her blood pressure becomes poorly controlled, we will resume losartan. Continue to follow this patient very closely. Dictated by Olya Lazar NP MD TYESHA Franklin/LEIF /[id number]
--- NOTE | 2019-10-22 14:37 | NUR ---
Dr Domingo approves transfer to med-surg.
--- NOTE | 2019-10-22 15:37 | NUR ---
Pt transferred to room 103. Received by Yessica HERNANDEZ. Reported pt is s/p label designer to right groin for follow up assessment and discharge info. Have discussed with pt post op PCI care and given written instructions. Lenard notified of transfer. No complications noted. Telemetry notified of assigned room change from 110 to 103.
--- NOTE | 2019-10-22 18:41 | NUR ---
PT RESTING IN BED, NG TUBE INTACT WITH LOW CONTINUOUS SUCTION. PT DENIES ANY PAIN AT THIS TIME. RESTING COMFORTABLY.
--- NOTE | 2019-10-22 19:10 | NUR ---
RECEIVED REPORT FROM PREVIOUS NURSE. CALL LIGHT WITHIN REACH. PATIENT IN BED. WALKING ROUNDS DONE.
--- NOTE | 2019-10-22 23:13 | NUR ---
PATIENT ASKED FOR SOMETHING FOR SLEEP. CALLED AND TALKED TO DR. HONG AND HE SAID THE PATIENT IS NPO SO HE DOES NOT WANT HER TO HAVE ANYTHING.
[2019-10-23] VITALS (13 sets, daily range): BP systolic 120–134; BP diastolic 71–76
[2019-10-23] MEDS: PIPER-TAZ 3.375 GM 50 ML IV SCH ×6 (00:19→23:53)
[2019-10-23] MEDS: SODIUM CHLORIDE 0.9% 250ML IRRIG IR SCH ×6 (03:03→23:00)
[2019-10-23] MEDS: METRONIDAZOLE 500MG/NS 100ML 100 ML IV SCH ×3 (05:31→16:55)
[2019-10-23] MEDS: INSULIN REGULAR, HUMAN 100 UNIT/1 ML 3ML VIAL SQ SCH ×5 (06:00→23:50)
[2019-10-23] MEDS: LACTATED RINGER'S 1,000 ML IV SCH ×4 (06:25→21:15)
--- NOTE | 2019-10-23 07:16 | NUR ---
GAVE REPORT TO ONCOMING NURSE. PATIENT IN BED. CALL LIGHT WITHIN REACH. BEDSIDE ROUNDING DONE.
--- NOTE | 2019-10-23 07:22 | Progress Note ---
DATE: SUBJECTIVE: A 49-year-old, status post laparotomy with resection of colon for ischemic colitis. The patient is feeling better. Did not sleep yesterday. NG tube in place. The patient is on IV fluids. No chest pain. No shortness of breath. OBJECTIVE: VITAL SIGNS: Temperature is 97.2, pulse of 68, respirations rate 18, blood pressure is 120/71, and pulse oximetry of 96%. HEENT: Normocephalic, atraumatic. PEG tube in place. CVS: S1 and S2 normal. Regular rate and rhythm. ABDOMEN: Nontender. Surgical scars dry. EXTREMITIES: No clubbing. No cyanosis. Trace amount of edema. MEDICATIONS: Reviewed. LABORATORY VALUES: White count is 9.69 yesterday, hemoglobin is 7.8, and hematocrit of 24.1. Chemistries yesterday's sodium of 141, potassium 3.1, and TIBC shows iron deficiency anemia. Magnesium is 1.1 today. ASSESSMENT: Ms. Lo Bentley with: 1. Ischemic colitis. 2. Acute thrombus within superior mesenteric artery. 3. Hyperlipidemia. 4. Diabetes mellitus. 5. Bipolar disease. PLAN: Continue to monitor the patient. Continue anemia. May need iron. Replace electrolytes as needed. We will keep the NG tube still. Surgery following the patient. Further recommendation per clinical course. We will continue to monitor the patient. If the bowels are not active and starting TPN might be advised. Further recommendation per clinical course. MD HERBERT Maria/MODL /[id number]
[2019-10-23 07:38] LABS: ALANINE AMINOTRANSFERASE 17 IU/L (0-55); ALBUMIN 2.1 g/dL (3.5-5.0); ALBUMIN/GLOBULIN RATIO 0.7 (0.8-2.0); ALKALINE PHOSPHATASE 64 IU/L (40-150); ANION GAP 9.6 mmol/L (8-16); BLOOD UREA NITROGEN 13 mg/dL (7-26); BUN/CREATININE RATIO 22 (6-25); CARBON DIOXIDE 27 mmol/L (22-29); CHLORIDE 107 mmol/L (98-107); EST GLOMERULAR FILTRATION RATE > 60 ML/MIN (60-); SODIUM 141 mmol/L (136-145)
[2019-10-23 07:40] LABS: POTASSIUM 2.6 mmol/L (3.5-5.1)
[2019-10-23 07:41] LABS: GLUCOSE 55 mg/dL (74-118)
[2019-10-23] MEDS ORDERED: POTASSIUM CHLORIDE 20MEQ/100ML 200 ML IV ONE (08:00)
[2019-10-23] MEDS: INSULIN GLARGINE 100 UNITS/ML VIAL SQ SCH ×2 (09:00→21:00)
[2019-10-23] MEDS: PANTOPRAZOLE 40 MG 10ML VIAL IV SCH ×2 (09:05→16:54)
[2019-10-23] MEDS: CYANOCOBALAMIN INJ 1,000 MCG/ML VIAL IM SCH (09:07)
[2019-10-23] MEDS: ENOXAPARIN INJ 80 MG/0.8 ML SYR SC SCH ×2 (09:07→21:00)
[2019-10-23] MEDS: EPOETIN ALFA-EPBX 10,000 UNIT/ML VIAL SC SCH (09:34)
[2019-10-23] MEDS: MORPHINE SULFATE INJ 4 MG/ML INJ 1ML IV PRN (12:56)
--- NOTE | 2019-10-23 14:13 | NUR ---
LOW REMOVED, TEACHING DONE
--- NOTE | 2019-10-23 16:37 | NUR ---
Nutrition Intervention Note RD Recommendation(s) for Physician: - When feasible, ADAT to goal of 1500 ADA, GI Soft. - If unable to advance diet within 24 hrs, recommend TPN at 50 ml/hr of 20% Dextrose 500 ml/L, 10% AA 500 ml/L, 25 gm lipids/day, NaCl 50 mEq/L, KCl 35 mEq/L, K Phos 12 mmol/L, Ca Gluconate 4.6 mEq/L, Mg Sulfate 12 mEq/L, MVI, trace, thiamine. (to provide 1200 ml, 120 gm dextrose, 60 gm protein, 898 kcal). - Check BMP with Mg and Phos daily, replace low lytes as tolerated. - If TPN initiated, advance as tolerated to goal rate of 75 ml/hr (to provide 1800 ml, 180 gm dextrose, 90 gm protein, and 1222 kcal). Plan of Care: RD following, monitoring for tolerance and adequacy. Diet and TPN rec's provided. Nutrition reason for involvement: Diet- NPO x [address] Assessment 10/22: 49 YOM admitted for mesenteric ischemia requiring a laparotomy and colon resection for ischemic colitis on 10/19. Pt seen today per diet, NPO x 5 days. Pt reports good appetite and po intake GAS SINGER. Pt reports UBW of 164#, no wt loss noted. Pt denies any nausea currently. Pt reports being hungry, explained that until NGT removed she is unable to eat. All questions and concerns addressed at time of visit. Chart reviewed. TPN discussed with RN, Dr. Ny managing the pt at this time. Will continue to monitor. Principal Problems/Diagnoses: mesenteric ischemia, HTN, hyperglycemia PMH: uncontrolled DM, metabolic syndrome, PCOS, bipolar disorder, hyperlipidemia GI: No BM, +NGT to LIWS- noted 500 ml output at time of visit Skin: abdominal incision Labs: 10/22: Na 141, K 2.6, BUN 13, Cr 0.6, Gluc 55, POC Gluc 60-64 Meds: KCl IVPB, vitamin B12, protonix, abx, morphine, zofran, lantus, regular insulin Ht: 61 in Wt: 174 lb BMI: 32.9 kg/m2 IBW: 105lb Malnutrition Evaluation (10/23/19) The patient does not meet criteria for a specified degree of malnutrition at this time. Will re-evaluate at follow-up as appropriate. Energy intake: <50% of estimated energy requirements for >5 days Weight loss: No wt loss, UBW 164# Fat loss: None, ample tricep skinfold thickness Muscle loss: None, shoulder round Supporting Evidence: Fluid accumulation: none observed Functional Status: no changes Nutrition Prescription (Diet Order): NPO Estimated Nutritional Needs: 4359-7503 calories/day (22-25 kcal/kg IBW) 72-95 g protein/day (1.5-2 g pro/kg IBW) Diet Adequacy: Not meeting calorie needs, Not meeting protein needs Diet Tolerance: N/A Diet Education Needs Assessment: Diet education not indicated, patient on temporary/transition diet. Nutrition Care Level: high Nutrition Diagnosis: Inadequate energy and protein intake related to mesenteric ischemia as evidenced by NPO x 5 days s/p colon resection with NGT to LIWS. Goal: Patient will meet 75-100% of estimated needs by follow up Progress: N/A Interventions: -CHO, fiber modified diet, Composition, Rate, Route, IVF, Prescription medications, Recommended Modifications, Multivitamin/mineral supplement therapy, Collaboration with other providers Monitoring/Evaluation: -Total energy intake, Total protein intake, Formula/Solution, IVF, Prescription medication, Modified diet Signed: Doreen Guillermo RD, LD, [facility]
[2019-10-23] MEDS ORDERED: POTASSIUM CHLORIDE 20MEQ/100ML 200 ML IV SCH (18:00)
--- NOTE | 2019-10-23 19:10 | NUR ---
Patient visited in room during nursing rounds. Patient alert and oriented x3. No distress or discomfort noted. S/P bowel resection last Wednesday with midline abd incisions. Abd dressing clean, dry and intact. On IVF (LR at 125ml/hr). Pt has NG tube to right nare (to low continuous wall suction) draining dark green liquid. Call manrique within reach. Will monitor closely.
--- NOTE | 2019-10-23 23:15 | NUR ---
Dr. David Pisano came and saw pt in room. MD aware of pt condition.
[2019-10-24] VITALS (11 sets, daily range): BP systolic 118–142; BP diastolic 64–83
--- NOTE | 2019-10-24 00:10 | Progress Note ---
DATE: 10/23/2019 Cardiology Progress Note SUBJECTIVE: No major events overnight. OBJECTIVE: VITAL SIGNS: Temperature afebrile, pulse 60, respiratory rate 18, blood pressure 122/72, saturating 98% on nasal cannula. GENERAL: Young female, well developed, well nourished, in no acute distress. CARDIOVASCULAR: Regular rate and rhythm. No murmurs, rubs, or gallops. ABDOMEN: Soft. Mild diffuse tenderness. No rebound or guarding. LUNGS: Clear to auscultation bilaterally. NEURO AND PSYCH: Alert and oriented to person, place, and time. Normal affect. INPATIENT MEDICATIONS: Reviewed. LABORATORY DATA: Reviewed. TELEMETRY DATA: Reviewed, showed normal sinus rhythm. ASSESSMENT: 1. Acute thrombus within the celiac and superior mesenteric artery with mesenteric ischemia, status post thrombectomy. 2. Status post bowel resection. 3. Hypertension. 4. Hyperlipidemia. 5. Diabetes. 6. Bipolar disorder. RECOMMENDATIONS: She is stable from cardiovascular standpoint. Continue Lovenox for now. We will need long-term anticoagulation given sudden onset of thrombus within the SMA and mesenteric artery. We will convert to Xarelto when she is closer to discharge. Thank you for this consult. We will continue to follow. MD SAPNA Viera/LEIF /[id number]
[2019-10-24] MEDS: METRONIDAZOLE 500MG/NS 100ML 100 ML IV SCH ×4 (00:43→17:10)
[2019-10-24] MEDS: MORPHINE SULFATE INJ 4 MG/ML INJ 1ML IV PRN (01:36)
[2019-10-24] MEDS: SODIUM CHLORIDE 0.9% 250ML IRRIG IR SCH ×6 (03:00→21:30)
--- NOTE | 2019-10-24 03:00 | NUR ---
Offered to change dressing but pt declined and stated she wanted it done during dayshift. Current dressing appear clean, dry and in intact.
[2019-10-24] MEDS: PIPER-TAZ 3.375 GM 50 ML IV SCH ×4 (05:25→23:40)
[2019-10-24] MEDS: INSULIN REGULAR, HUMAN 100 UNIT/1 ML 3ML VIAL SQ SCH ×4 (06:00→21:00)
--- NOTE | 2019-10-24 07:20 | Progress Note ---
DATE: SUBJECTIVE: The patient came in with acute mesenteric ischemia. The patient is status post colectomy, doing well. NG tube still to suction. No bowel sounds and no bowel movements. No flatus. OBJECTIVE: VITAL SIGNS: Temperature 97.4, pulse of 74, respiration of 19, blood pressure is 122/79, pulse oximetry of 98%. HEENT: Normocephalic and atraumatic. Pupils reactive. NG tube to suction. CVS: S1 and S2 normal. Regular rate and rhythm. ABDOMEN: Soft. Incision site is normal and dry. EXTREMITIES: No clubbing, no cyanosis, no edema. LABORATORY VALUES: None done today. Blood pressures have been running in the glucose of 59. ASSESSMENT: Ms. Burnett with: 1. Acute thrombosis of this celiac and superior mesenteric artery with mesenteric ischemia, status post resection. 2. Hypertension. 3. Hyperlipidemia. 4. Diabetes mellitus, uncontrolled. PLAN: Continue same medication. The patient will continue anticoagulation. is on the case. The patient's blood sugar monitoring has been done, blood sugars are running on the lower side. We will decrease her insulin. Currently, she is getting 15 units q.12 hours. We will decrease the night-time dose to 10 units. Further recommendation per clinical course. We will continue to monitor the patient. Labs will be done tomorrow. MD HERBERT Maria/BARRERAL /[id number]
[2019-10-24 08:22] LABS: BASOPHILS % 0.5 % (0.0-1.0); EOSINOPHILS # (AUTO) 0.1 (0.0-0.4); EOSINOPHILS % 1.4 % (0.0-6.0); HEMATOCRIT 24.6 % (34.2-44.1); LYMPHOCYTES # (AUTO) 1.8 (1.0-3.2); LYMPHOCYTES % 27.1 % (18.0-39.1); MEAN CORPUSCULAR HEMOGLOBIN 27.8 pg (28-32); MEAN CORPUSCULAR HGB CONC 32.5 g/dL (31-35); MEAN CORPUSCULAR VOLUME 85.4 fL (81-99); MONOCYTES # (AUTO) 0.4 (0.2-0.8); MONOCYTES % 6.1 % (4.4-11.3); NEUTROPHILS % 60.6 % (38.7-80.0); PLATELET COUNT 259 x10e3/uL (140-360); RED BLOOD COUNT 2.88 x10e6/uL (3.6-5.1); RED CELL DISTRIBUTION WIDTH 13.6 % (11.7-14.4)
[2019-10-24] MEDS: CYANOCOBALAMIN INJ 1,000 MCG/ML VIAL IM SCH (09:00)
[2019-10-24] MEDS: INSULIN GLARGINE 100 UNITS/ML VIAL SQ SCH ×2 (09:00→21:30)
[2019-10-24] MEDS: PANTOPRAZOLE 40 MG 10ML VIAL IV SCH ×2 (09:11→16:15)
[2019-10-24] MEDS: ENOXAPARIN INJ 80 MG/0.8 ML SYR SC SCH ×2 (09:12→21:30)
[2019-10-24] MEDS: LACTATED RINGER'S 1,000 ML IV SCH ×2 (09:58→16:29)
--- NOTE | 2019-10-24 19:15 | NUR ---
Patient visited in room during nursing rounds. Patient alert and oriented x3. No distress or discomfort noted. S/P bowel resection last Wednesday with midline abd incisions. Abd dressing clean, dry and intact. On IVF (LR at 125ml/hr). Pt has NG tube to right nare (to low intermittent wall suction) draining dark green liquid. Call manrique within reach. Will monitor closely.
[2019-10-24] MEDS ORDERED: ACETAMINOPHEN 325 MG TAB PO PRN ×2 (22:15→22:30)
[2019-10-24] MEDS: ACETAMINOPHEN 325 MG TAB PO PRN (22:38)
--- NOTE | 2019-10-24 23:44 | Progress Note ---
DATE: 10/24/2019 Cardiology Progress Note SUBJECTIVE: No major events overnight. OBJECTIVE: VITAL SIGNS: Temperature afebrile, pulse 74, respiratory rate 19, blood pressure 122/79, saturating 98%. GENERAL: Well developed, well nourished, in no acute distress. CARDIOVASCULAR: Regular rate and rhythm. No murmurs, rubs, or gallops. LUNGS: Clear to auscultation bilaterally. ABDOMEN: Soft, incision site tenderness. No bowel sounds. NEURO AND PSYCH: Alert and oriented to person, place, and time. Normal affect. INPATIENT MEDICATIONS: Reviewed. LABORATORY DATA: Reviewed. TELEMETRY DATA: Reviewed, shows sinus normal rhythm. ASSESSMENT AND PLAN: 1. Acute thrombosis of celiac and superior mesenteric artery, status post thrombectomy. 2. Status post bowel resection. 3. Hypertension. 4. Hyperlipidemia. 5. Diabetes. PLAN: Continue current medical regimen. Continue full-dose Lovenox for anticoagulation. The patient is currently unable to take oral medicine due to ileus postoperatively. We will convert to Xarelto once the patient is able to take oral medications. Stable from cardiovascular standpoint otherwise. Thank you for this consult. We will continue to follow. MD SAPNA Viera/LEIF /[id number]
[2019-10-25] VITALS (9 sets, daily range): BP systolic 128–143; BP diastolic 70–85
[2019-10-25] MEDS: METRONIDAZOLE 500MG/NS 100ML 100 ML IV SCH ×4 (00:20→17:05)
[2019-10-25] MEDS: SODIUM CHLORIDE 0.9% 250ML IRRIG IR SCH ×6 (03:00→23:00)
[2019-10-25] MEDS: LACTATED RINGER'S 1,000 ML IV SCH ×3 (03:00→17:45)
[2019-10-25] MEDS: PIPER-TAZ 3.375 GM 50 ML IV SCH ×3 (05:45→17:06)
[2019-10-25 05:49] LABS: BASOPHILS % 0.3 % (0.0-1.0); EOSINOPHILS # (AUTO) 0.1 (0.0-0.4); EOSINOPHILS % 0.6 % (0.0-6.0); HEMATOCRIT 26.2 % (34.2-44.1); HEMOGLOBIN 8.4 g/dL (12.0-16.0); LYMPHOCYTES # (AUTO) 1.6 (1.0-3.2); LYMPHOCYTES % 21.1 % (18.0-39.1); MEAN CORPUSCULAR HGB CONC 32.1 g/dL (31-35); MEAN CORPUSCULAR VOLUME 84.2 fL (81-99); MONOCYTES # (AUTO) 0.4 (0.2-0.8); MONOCYTES % 5.4 % (4.4-11.3); NEUTROPHILS # (AUTO) 5.5 (2.1-6.9); NEUTROPHILS % 70.3 % (38.7-80.0); PLATELET COUNT 337 x10e3/uL (140-360); RED BLOOD COUNT 3.11 x10e6/uL (3.6-5.1); RED CELL DISTRIBUTION WIDTH 13.6 % (11.7-14.4)
[2019-10-25 06:09] LABS: ALANINE AMINOTRANSFERASE 30 IU/L (0-55); ALBUMIN 2.2 g/dL (3.5-5.0); ALBUMIN/GLOBULIN RATIO 0.7 (0.8-2.0); ALKALINE PHOSPHATASE 87 IU/L (40-150); ANION GAP 13.5 mmol/L (8-16); BLOOD UREA NITROGEN 5 mg/dL (7-26); BUN/CREATININE RATIO 8 (6-25); CALCIUM 7.9 mg/dL (8.4-10.2); CARBON DIOXIDE 28 mmol/L (22-29); CHLORIDE 101 mmol/L (98-107); EST GLOMERULAR FILTRATION RATE > 60 ML/MIN (60-); GLUCOSE 122 mg/dL (74-118); SODIUM 140 mmol/L (136-145)
[2019-10-25 06:16] LABS: POTASSIUM 2.5 mmol/L (3.5-5.1)
[2019-10-25] MEDS ORDERED: POTASSIUM CHLORIDE 20MEQ/100ML 200 ML IV ONE ×2 (06:45→18:00)
[2019-10-25] MEDS: INSULIN REGULAR, HUMAN 100 UNIT/1 ML 3ML VIAL SQ SCH ×4 (07:30→21:58)
--- NOTE | 2019-10-25 07:55 | Progress Note ---
DATE: SUBJECTIVE: A 49-year-old female, who came with ischemic colitis, mesenteric ischemia. The patient is currently doing well, still has NG tube to suction, drained about 500 in the last shift. She has been walking, using incentive spirometer, slept well. Pain is controlled. She has not asked for any pain medication. No bowel sounds, no bowel movement, and no flatus. PHYSICAL EXAMINATION: VITAL SIGNS: Temperature is 99.3, had a T-max of 100.0, pulse of 82, respirations of 18, blood pressure is 132/76, pulse oximetry of 97%. HEENT: Normocephalic, atraumatic. Pupils are reactive to light and accommodation. CVS: S1 and S2 are normal. Regular rate and rhythm. ABDOMEN: Soft. Bowel sounds are negative. EXTREMITIES: No clubbing. No cyanosis. Trace edema. LABORATORY VALUES: Today's white count is 7.76, hemoglobin of 8.4, hematocrit of 26.2. Chemistry shows potassium of 2.5, magnesium is not done, calcium was 7.2, creatinine was 0.60. EGFR above 60. ASSESSMENT: Ms. Burnett with. 1. Acute thrombosis of celiac and superior mesenteric artery with ischemic colitis. 2. Hypertension. 3. Hyperlipidemia. 4. Diabetes mellitus, uncontrolled. PLAN: Continue on anticoagulation. Surgery on case. We will continue ambulating her and also using incentive spirometry. Insulin has been decreased yesterday. Glucose is trending a little higher today. Insulin will be increased as recommended. Further recommendation per clinical course. We will continue to monitor the patient along with the consultants. MD HERBERT Marai/MODL /[id number]
[2019-10-25] MEDS: ACETAMINOPHEN 325 MG TAB PO PRN (08:30)
[2019-10-25] MEDS: CYANOCOBALAMIN INJ 1,000 MCG/ML VIAL IM SCH (08:44)
[2019-10-25] MEDS: ENOXAPARIN INJ 80 MG/0.8 ML SYR SC SCH ×2 (08:44→21:58)
[2019-10-25] MEDS: PANTOPRAZOLE 40 MG 10ML VIAL IV SCH ×2 (08:44→17:05)
[2019-10-25] MEDS: INSULIN GLARGINE 100 UNITS/ML VIAL SQ SCH ×2 (08:44→21:59)
[2019-10-25] MEDS: EPOETIN ALFA-EPBX 10,000 UNIT/ML VIAL SC SCH (08:44)
--- NOTE | 2019-10-25 12:01 | NUR ---
NGT REMOVED. PATIENT TOLERATED WELL IN NO APPARENT DISTRESS
--- NOTE | 2019-10-25 15:11 | NUR ---
Nutrition Intervention Note RD Recommendation(s) for Physician: - When feasible, ADAT to goal of 1500 ADA, GI Soft. Glucerna Shake BID. - Pt now NPO/CL x 7 days, recommend TPN at 50 ml/hr of 20% Dextrose 500 ml/L, 10% AA 500 ml/L, 25 gm lipids/day, NaCl 50 mEq/L, KCl 35 mEq/L, K Phos 12 mmol/L, Ca Gluconate 4.6 mEq/L, Mg Sulfate 12 mEq/L, MVI, trace, thiamine. (to provide 1200 ml, 120 gm dextrose, 60 gm protein, 898 kcal). - Check BMP with Mg and Phos daily, replace low lytes as needed. Check TG weekly. - If TPN initiated, advance as tolerated to goal rate of 75 ml/hr (to provide 1800 ml, 180 gm dextrose, 90 gm protein, and 1222 kcal). Plan of Care: RD following, monitoring for tolerance and adequacy. Diet and TPN rec's provided. Nutrition reason for involvement: follow up, NPO/CLD x [address] Assessment 10/24: Follow up. NGT removed and advanced to CLD, pt tolerating diet with good intake. Pt with BM today. Diet and TPN rec's provided. Chart. reviewed. Will continue to monitor. 10/22: 49 YOM admitted for mesenteric ischemia requiring a laparotomy and colon resection for ischemic colitis on 10/19. Pt seen today per diet, NPO x 5 days. Pt reports good appetite and po intake G[employer] MATE M. Pt reports UBW of 164#, no wt loss noted. Pt denies any nausea currently. Pt reports being hungry, explained that until NGT removed she is unable to eat. All questions and concerns addressed at time of visit. Chart reviewed. TPN discussed with RN, Dr. Ny managing the pt at this time. Will continue to monitor. Principal Problems/Diagnoses: mesenteric ischemia, HTN, hyperglycemia PMH: uncontrolled DM, metabolic syndrome, PCOS, bipolar disorder, hyperlipidemia GI: LBM x2 10/24, liquid stool Skin: abdominal incision Labs: 10/24: Na 140, K 2.5, BUN 5, Cr 0.6, Gluc 122, Ca 7.9, POC Gluc 85-191 10/22: Na 141, K 2.6, BUN 13, Cr 0.6, Gluc 55, POC Gluc 60-64 Meds: KCl IVPB, vitamin B12, protonix, abx, zofran, lantus, regular insulin Ht: 61 in Wt: 174 lb BMI: 32.9 kg/m2 IBW: 105lb Malnutrition Evaluation (10/23/19) The patient does not meet criteria for a specified degree of malnutrition at this time. Will re-evaluate at follow-up as appropriate. Energy intake: <50% of estimated energy requirements for >5 days Weight loss: No wt loss, UBW 164# Fat loss: None, ample tricep skinfold thickness Muscle loss: None, shoulder round Supporting Evidence: Fluid accumulation: none observed Functional Status: no changes Nutrition Prescription (Diet Order): CLD Estimated Nutritional Needs: 3558-2053 calories/day (22-25 kcal/kg IBW) 72-95 g protein/day (1.5-2 g pro/kg IBW) Diet Adequacy: Not meeting calorie needs, Not meeting protein needs Diet Tolerance: N/A Diet Education Needs Assessment: Diet education not indicated, patient on temporary/transition diet. Nutrition Care Level: high Nutrition Diagnosis: Inadequate energy and protein intake related to mesenteric ischemia as evidenced by NPO x 5 days s/p colon resection with NGT to LIWS. Goal: Patient will meet 75-100% of estimated needs by follow up Progress: not progressing Interventions: -CHO, fiber modified diet, Composition, Rate, Route, IVF, Prescription medications, Recommended Modifications, Multivitamin/mineral supplement therapy, Collaboration with other providers Monitoring/Evaluation: -Total energy intake, Total protein intake, Formula/Solution, IVF, Prescription medication, Modified diet Signed: Doreen Guillermo RD, LD, [facility]
[2019-10-26] VITALS (7 sets, daily range): BP systolic 110–141; BP diastolic 71–82
[2019-10-26] MEDS: ACETAMINOPHEN 325 MG TAB PO PRN (01:37)
[2019-10-26] MEDS: SODIUM CHLORIDE 0.9% 250ML IRRIG IR SCH (03:00)
[2019-10-26] MEDS: LACTATED RINGER'S 1,000 ML IV SCH ×4 (03:32→23:25)
[2019-10-26] MEDS: METRONIDAZOLE 500MG/NS 100ML 100 ML IV SCH ×5 (05:30→23:25)
[2019-10-26] MEDS: PIPER-TAZ 3.375 GM 50 ML IV SCH ×4 (05:30→17:38)
[2019-10-26 05:38] LABS: BASOPHILS % 0.3 % (0.0-1.0); EOSINOPHILS # (AUTO) 0.1 (0.0-0.4); EOSINOPHILS % 0.6 % (0.0-6.0); HEMOGLOBIN 8.2 g/dL (12.0-16.0); LYMPHOCYTES # (AUTO) 1.6 (1.0-3.2); LYMPHOCYTES % 20.2 % (18.0-39.1); MEAN CORPUSCULAR HEMOGLOBIN 28.1 pg (28-32); MEAN CORPUSCULAR HGB CONC 32.8 g/dL (31-35); MEAN CORPUSCULAR VOLUME 85.6 fL (81-99); MONOCYTES # (AUTO) 0.4 (0.2-0.8); MONOCYTES % 5.7 % (4.4-11.3); NEUTROPHILS # (AUTO) 5.5 (2.1-6.9); NEUTROPHILS % 71.4 % (38.7-80.0); PLATELET COUNT 368 x10e3/uL (140-360); RED BLOOD COUNT 2.92 x10e6/uL (3.6-5.1); RED CELL DISTRIBUTION WIDTH 13.7 % (11.7-14.4)
[2019-10-26 06:10] LABS: ALANINE AMINOTRANSFERASE 26 IU/L (0-55); ALBUMIN 2.2 g/dL (3.5-5.0); ALBUMIN/GLOBULIN RATIO 0.7 (0.8-2.0); ALKALINE PHOSPHATASE 73 IU/L (40-150); ANION GAP 10.5 mmol/L (8-16); BLOOD UREA NITROGEN < 5 mg/dL (7-26); CALCIUM 8.2 mg/dL (8.4-10.2); CARBON DIOXIDE 29 mmol/L (22-29); CHLORIDE 103 mmol/L (98-107); CREATININE, SERUM 0.59 mg/dL (0.57-1.11); EST GLOMERULAR FILTRATION RATE > 60 ML/MIN (60-); GLUCOSE 61 mg/dL (74-118); MAGNESIUM 1.7 MG/DL (1.3-2.1); SODIUM 140 mmol/L (136-145)
[2019-10-26 06:54] LABS: BUN/CREATININE RATIO 8 (6-25); POTASSIUM 2.5 mmol/L (3.5-5.1)
--- NOTE | 2019-10-26 07:22 | NUR ---
REPORT GIVEN TO DAYSHIFT NURSE. NO ADVERSE SIGNS TO R IJ. AAOX3. RESTING IN BED. BED LOCKED AND IN LOW POSITION. CALL LIGHT WITHIN REACH.
[2019-10-26] MEDS: INSULIN REGULAR, HUMAN 100 UNIT/1 ML 3ML VIAL SQ SCH ×4 (07:30→20:50)
[2019-10-26] MEDS ORDERED: MAGNESIUM SULFATE 2GM/50ML 50 ML IV ONE ×2 (08:15→18:00)
[2019-10-26] MEDS ORDERED: POTASSIUM CHLORIDE 20MEQ/100ML 200 ML IV ONE ×2 (08:15→17:00)
[2019-10-26] MEDS: ENOXAPARIN INJ 80 MG/0.8 ML SYR SC SCH ×2 (09:28→20:50)
[2019-10-26] MEDS: PANTOPRAZOLE 40 MG 10ML VIAL IV SCH ×2 (09:28→17:18)
[2019-10-26] MEDS: CYANOCOBALAMIN INJ 1,000 MCG/ML VIAL IM SCH (09:49)
[2019-10-26] MEDS: INSULIN GLARGINE 100 UNITS/ML VIAL SQ SCH ×2 (10:15→20:50)
[2019-10-26] MEDS: IRON SUCROSE 100 MG in SODIUM CHLORIDE 0.9% 100 ML 100 ML IV SCH (11:00)
--- NOTE | 2019-10-26 11:00 | NUR ---
Dr. Domingo here to pt.
--- NOTE | 2019-10-26 15:00 | Progress Note ---
DATE: SUBJECTIVE: A 49-year-old female with acute ischemic colitis, mesenteric ischemia. The patient is doing better, has been eating, had bowel sounds and bowel movements. No chest pain. No shortness of breath. NG tube is out. OBJECTIVE: VITAL SIGNS: Temperature is 98.4, pulse of 72, respirations of 18, blood pressure is 132/82, pulse oximetry 100%. HEENT: Normocephalic and atraumatic. Pupils are reactive to light and accommodation. CVS: S1 and S2 normal. Regular rate and rhythm. ABDOMEN: Nontender, nondistended. EXTREMITIES: No clubbing. No cyanosis. No edema. Surgical incision good. LABORATORY VALUES: The patient's white count is normal. Chemistries, potassium was 2.5 replacement done. Mag was also replaced 2 g, was 1.7 today. ASSESSMENT AND PLAN: Ms. Burnett with: 1. Acute thrombosis of the celiac and superior mesenteric artery with ischemic colitis. 2. Hyperlipidemia. 3. Diabetes mellitus, uncontrolled. PLAN: Continue with anticoagulation, will need lifelong anticoagulation. Continue monitoring glucose. Antibiotics on board. Further recommendation per clinical course. disposition and discharge in 1 to 2 days. MD HERBERT Maria/MODL /[id number]
--- NOTE | 2019-10-26 19:32 | NUR ---
report given to oncoming nurse, walking rounds complete, pt stable at shift change.
--- NOTE | 2019-10-26 23:38 | NUR ---
PROVIDED CASTILE SOAP WIPES TO PERFORM SELF URINARY CATHETER CARE. DEMONSTRATED CORRECT USE OF WIPES. Addendum: 10/27/19 at 0320 by Mercedez Tim RN PLEASE DISREGARD THIS NOTE
[2019-10-27] VITALS (7 sets, daily range): BP systolic 104–127; BP diastolic 68–77
[2019-10-27] MEDS: PIPER-TAZ 3.375 GM 50 ML IV SCH ×4 (00:30→18:32)
[2019-10-27] MEDS: METRONIDAZOLE 500MG/NS 100ML 100 ML IV SCH ×4 (06:27→23:39)
[2019-10-27 07:12] LABS: ALANINE AMINOTRANSFERASE 23 IU/L (0-55); ALBUMIN 2.2 g/dL (3.5-5.0); ALBUMIN/GLOBULIN RATIO 0.7 (0.8-2.0); ALKALINE PHOSPHATASE 81 IU/L (40-150); ANION GAP 10.9 mmol/L (8-16); BLOOD UREA NITROGEN < 5 mg/dL (7-26); CALCIUM 8.1 mg/dL (8.4-10.2); CARBON DIOXIDE 27 mmol/L (22-29); CHLORIDE 103 mmol/L (98-107); CREATININE, SERUM 0.57 mg/dL (0.57-1.11); EST GLOMERULAR FILTRATION RATE > 60 ML/MIN (60-); SODIUM 138 mmol/L (136-145)
[2019-10-27 07:14] LABS: BUN/CREATININE RATIO 9 (6-25); POTASSIUM 2.9 mmol/L (3.5-5.1)
[2019-10-27 07:17] LABS: GLUCOSE 56 mg/dL (74-118)
--- NOTE | 2019-10-27 07:18 | NUR ---
BEDSIDE SHIFT REPORT GIVEN. PATIENT IN STABLE CONDITION. NO SIGNS OR SYMPTOMS OF DISTRESS NOTED.
[2019-10-27] MEDS: INSULIN REGULAR, HUMAN 100 UNIT/1 ML 3ML VIAL SQ SCH ×4 (07:30→21:00)
[2019-10-27] MEDS ORDERED: MAGNESIUM SULF 1GRAM/DEXTROSE 100 ML IV ONE (08:00)
[2019-10-27] MEDS ORDERED: POTASSIUM CHLORIDE 20 MEQ TAB CR PO ONE (08:30)
[2019-10-27] MEDS: INSULIN GLARGINE 100 UNITS/ML VIAL SQ SCH ×2 (09:00→21:50)
[2019-10-27] MEDS: IRON SUCROSE 100 MG in SODIUM CHLORIDE 0.9% 100 ML 100 ML IV SCH (09:39)
[2019-10-27] MEDS: EPOETIN ALFA-EPBX 10,000 UNIT/ML VIAL SC SCH (09:39)
[2019-10-27] MEDS: ENOXAPARIN INJ 80 MG/0.8 ML SYR SC SCH ×2 (09:39→21:50)
[2019-10-27] MEDS: PANTOPRAZOLE 40 MG 10ML VIAL IV SCH ×2 (09:39→17:44)
[2019-10-27] MEDS: CYANOCOBALAMIN INJ 1,000 MCG/ML VIAL IM SCH (09:39)
[2019-10-27] MEDS: LACTATED RINGER'S 1,000 ML IV SCH ×2 (13:42→17:45)
--- NOTE | 2019-10-27 14:47 | NUR ---
Nutrition Intervention Note RD Recommendation(s) for Physician: - Recommend advancing to 1500 kcal ADA, GI Soft when medically appropriate - Glucerna Shake BID Plan of Care: RD following, monitoring for tolerance and adequacy. Nutrition reason for involvement: follow up RD Assessment 10/26: Follow up. Chart reviewed. Pt was advanced to a full liquid diet and reports she is tolerating the diet. It is recorded that pt has been consuming 50% of liquids. Recommend Glucerna BID for added nutrition. Will continue to monitor. 10/24: Follow up. NGT removed and advanced to CLD, pt tolerating diet with good intake. Pt with BM today. Diet and TPN rec's provided. Chart. reviewed. Will continue to monitor. 10/22: 49 YOM admitted for mesenteric ischemia requiring a laparotomy and colon resection for ischemic colitis on 10/19. Pt seen today per diet, NPO x 5 days. 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 Pt reports UBW of 164#, no wt loss noted. Pt denies any nausea currently. Pt reports being hungry, explained that until NGT removed she is unable to eat. All questions and concerns addressed at time of visit. Chart reviewed. TPN discussed with RN, Dr. Ny managing the pt at this time. Will continue to monitor. Principal Problems/Diagnoses: mesenteric ischemia, HTN, hyperglycemia PMH: uncontrolled DM, metabolic syndrome, PCOS, bipolar disorder, hyperlipidemia GI: LBM 10/26 x 2 Skin: abdominal incision Labs: 10/26: Na 138, K 2.9, BUN <5, Glu 56, Ca 8.1 10/24: Na 140, K 2.5, BUN 5, Cr 0.6, Gluc 122, Ca 7.9, POC Gluc 85-191 10/22: Na 141, K 2.6, BUN 13, Cr 0.6, Gluc 55, POC Gluc 60-64 Meds: IV iron, Vitamin B12, lovenox, protonix, antibiotics, insulin, zofran Ht: 61 in Wt: 174 lb BMI: 32.9 kg/m2 IBW: 105lb Malnutrition Evaluation (10/23/19) The patient does not meet criteria for a specified degree of malnutrition at this time. Will re-evaluate at follow-up as appropriate. Energy intake: <50% of estimated energy requirements for >5 days Weight loss: No wt loss, UBW 164# Fat loss: None, ample tricep skinfold thickness Muscle loss: None, shoulder round Supporting Evidence: Fluid accumulation: none observed Functional Status: no changes Nutrition Prescription (Diet Order): Full Liquid Estimated Nutritional Needs: 8357-7146 calories/day (22-25 kcal/kg IBW) 72-95 g protein/day (1.5-2 g pro/kg IBW) Diet Adequacy: Not meeting calorie needs, Not meeting protein needs Diet Tolerance: tolerating PO Diet Education Needs Assessment: Diet education not indicated, patient on temporary/transition diet. Nutrition Care Level: high Nutrition Diagnosis: Inadequate energy and protein intake related to mesenteric ischemia as evidenced by insufficient energy intake from diet compared to needs. Goal: Patient will meet 75-100% of estimated needs by follow up Progress: progressing Interventions: -CHO, fiber modified diet, Commercial beverage, Collaboration with other providers Monitoring/Evaluation: -Total energy intake, Total protein intake, Modified diet, Liquid supplement, Weight change Signed: Olga Robison RD, DONA
--- NOTE | 2019-10-27 21:06 | Progress Note ---
DATE: SUBJECTIVE: The patient is a 49-year-old female with extensive bowel work, status post mesenteric ischemia. The patient is doing well, eating clear liquids and full liquids. No chest pains. No shortness of breath. Has had still bowel movements. OBJECTIVE: VITAL SIGNS: Temperature is 96.9, pulse of 80, respirations 16, blood pressure is 125/71, pulse oximetry of 98%. HEENT: Normocephalic and atraumatic. Pupils reactive. CVS: S1 and S2 normal. Regular rate and rhythm. ABDOMEN: Nontender. Bowel sounds are positive. EXTREMITIES: No clubbing, no cyanosis, no edema. ASSESSMENT: Ms. Lo Burnett with: 1. 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 2. Hyperlipidemia. 3. Diabetes mellitus. 4. Hypokalemia and hypomagnesemia. PLAN: Continue replacing, will need anticoagulation. Currently, the patient is on Lovenox 80 q.12 hours. We will change it over to p.o. Continue with antibiotics. Further recommendation per clinical course and also have case management adjust and arrange for home anticoagulation. For further information, look in the chart. MD HERBERT Maria/LEIF /[id number]
--- NOTE | 2019-10-27 21:50 | NUR ---
PATIENT RESTING IN BED AOX4, NO SIGNS OF RESPIRATORY DISTRESS NOTED. IV FLUIDS ARE RUNNING AT ORDERED RATE AND PATIENT VOICES NO PAIN AT THIS TIME. MIDLINE INCISION NOTED IN ABDOMINAL AREA, DRESSING IS CLEAN, DRY, AND INTACT. BED IS IN LOW POSITION, BOTH SIDE RAILS ARE UP, CALL LIGHT IS WITHIN REACH, WILL CONTINUE TO MONITOR.
[2019-10-28] VITALS (8 sets, daily range): BP systolic 116–132; BP diastolic 72–80
[2019-10-28] MEDS: PIPER-TAZ 3.375 GM 50 ML IV SCH (00:51)
--- NOTE | 2019-10-28 02:07 | Progress Note ---
DATE: 10/27/2019 Cardiology Progress Note SUBJECTIVE: Doing well. Clear liquid diet. OBJECTIVE: VITAL SIGNS: Temperature 96.9, pulse 80, respiratory rate 16, blood pressure 125/71, saturating 98% on room air. GENERAL: Well-developed, well-nourished, in no acute distress. CARDIOVASCULAR: Regular rate and rhythm. No murmurs, rubs, or gallops. LUNGS: Clear to auscultation anteriorly. ABDOMEN: Soft, nontender, and nondistended. NEURO AND PSYCH: Alert and oriented to person, place, and time. Normal affect. INPATIENT MEDICATIONS: Reviewed. LABORATORY DATA: Reviewed. TELEMETRY DATA: The patient is on telemetry. ASSESSMENT: 1. Acute thrombosis of celiac and superior mesenteric arteries with resulting ischemic colitis, status post extensive bowel resection. 2. Hyperlipidemia. 3. Diabetes. 4. Hypokalemia. PLAN: Stable from a Cardiovascular standpoint. We will change the Lovenox over to Xarelto once she gets a little closer to discharge, though currently I am not sure how well absorption is given extensive bowel section. Continue IV Lovenox for now. Thank you for this consult. We will continue to follow.6 MD SAPNA Viera/LEIF /[id number]
[2019-10-28] MEDS: LACTATED RINGER'S 1,000 ML IV SCH ×3 (03:32→21:13)
[2019-10-28] MEDS: METRONIDAZOLE 500MG/NS 100ML 100 ML IV SCH (05:36)
[2019-10-28 05:56] LABS: BASOPHILS % 0.3 % (0.0-1.0); EOSINOPHILS # (AUTO) 0.1 (0.0-0.4); EOSINOPHILS % 1.3 % (0.0-6.0); HEMATOCRIT 24.8 % (34.2-44.1); HEMOGLOBIN 7.9 g/dL (12.0-16.0); LYMPHOCYTES # (AUTO) 1.3 (1.0-3.2); LYMPHOCYTES % 17.7 % (18.0-39.1); MEAN CORPUSCULAR HEMOGLOBIN 27.8 pg (28-32); MEAN CORPUSCULAR HGB CONC 31.9 g/dL (31-35); MEAN CORPUSCULAR VOLUME 87.3 fL (81-99); MONOCYTES # (AUTO) 0.4 (0.2-0.8); MONOCYTES % 6.2 % (4.4-11.3); NEUTROPHILS # (AUTO) 5.2 (2.1-6.9); NEUTROPHILS % 73.5 % (38.7-80.0); PLATELET COUNT 449 x10e3/uL (140-360); RED BLOOD COUNT 2.84 x10e6/uL (3.6-5.1); RED CELL DISTRIBUTION WIDTH 14.4 % (11.7-14.4)
[2019-10-28 06:07] LABS: ALANINE AMINOTRANSFERASE 21 IU/L (0-55); ALBUMIN 2.1 g/dL (3.5-5.0); ALBUMIN/GLOBULIN RATIO 0.7 (0.8-2.0); ALKALINE PHOSPHATASE 89 IU/L (40-150); BLOOD UREA NITROGEN < 5 mg/dL (7-26); CARBON DIOXIDE 27 mmol/L (22-29); CHLORIDE 103 mmol/L (98-107); EST GLOMERULAR FILTRATION RATE > 60 ML/MIN (60-); GLUCOSE 100 mg/dL (74-118); MAGNESIUM 1.9 MG/DL (1.3-2.1); SODIUM 138 mmol/L (136-145)
[2019-10-28 06:19] LABS: BUN/CREATININE RATIO 8 (6-25)
[2019-10-28] MEDS: INSULIN REGULAR, HUMAN 100 UNIT/1 ML 3ML VIAL SQ SCH ×4 (07:30→21:00)
[2019-10-28] MEDS: PANTOPRAZOLE 40 MG 10ML VIAL IV SCH ×2 (09:45→17:35)
[2019-10-28] MEDS: IRON SUCROSE 100 MG in SODIUM CHLORIDE 0.9% 100 ML 100 ML IV SCH (09:45)
[2019-10-28] MEDS: CYANOCOBALAMIN INJ 1,000 MCG/ML VIAL IM SCH (09:45)
[2019-10-28] MEDS: INSULIN GLARGINE 100 UNITS/ML VIAL SQ SCH ×2 (09:46→21:14)
--- NOTE | 2019-10-28 12:12 | NUR ---
DRESSING CHANGED PER DR. ANDRES VERBAL ORDER AT APPROXIMATELY 1110
--- NOTE | 2019-10-28 21:10 | NUR ---
PATIENT RESTING IN BED IN STABLE CONDITION AOX4, NO SIGNS OF RESPIRATORY DISTRESS NOTED. IV FLUIDS ARE RUNNING AT ORDERED RATE AND PATIENT VOICES NO PAIN AT THIS TIME. MIDLINE INCISION NOTED IN ABDOMINAL AREA, DRESSING IS CLEAN, DRY, AND INTACT. AMBIEN GIVEN TO PATIENT UPON REQUEST,WILL MONITOR CLOSELY FOR REACTIONS. BED IS IN LOW POSITION, BOTH SIDE RAILS ARE UP, CALL LIGHT IS WITHIN REACH, WILL CONTINUE TO MONITOR.
[2019-10-28] MEDS: ZOLPIDEM TARTRATE 5 MG TAB PO PRN (21:13)
[2019-10-29] VITALS (8 sets, daily range): BP systolic 118–144; BP diastolic 70–85
[2019-10-29] MEDS ORDERED: DIPHENOXYLATE/ATROPINE TAB PO ONE
[2019-10-29] MEDS: LACTATED RINGER'S 1,000 ML IV SCH ×3 (00:07→18:30)
[2019-10-29] MEDS ORDERED: ALBUMIN 25% 25GM 100ML 0.25 GM/ML BTL IV SCH (06:00)
[2019-10-29 06:01] LABS: ALANINE AMINOTRANSFERASE 19 IU/L (0-55); ALBUMIN 2.2 g/dL (3.5-5.0); ALBUMIN/GLOBULIN RATIO 0.7 (0.8-2.0); ALKALINE PHOSPHATASE 97 IU/L (40-150); ANION GAP 10.9 mmol/L (8-16); BLOOD UREA NITROGEN < 5 mg/dL (7-26); CALCIUM 8.2 mg/dL (8.4-10.2); CARBON DIOXIDE 30 mmol/L (22-29); CHLORIDE 99 mmol/L (98-107); CREATININE, SERUM 0.61 mg/dL (0.57-1.11); EST GLOMERULAR FILTRATION RATE > 60 ML/MIN (60-); GLUCOSE 93 mg/dL (74-118); MAGNESIUM 1.6 MG/DL (1.3-2.1); SODIUM 137 mmol/L (136-145)
[2019-10-29 06:05] LABS: BUN/CREATININE RATIO 8 (6-25)
[2019-10-29 06:06] LABS: POTASSIUM 2.9 mmol/L (3.5-5.1)
[2019-10-29] MEDS: ALBUMIN 25% 25GM 100ML 0.25 GM/ML BTL IV SCH ×3 (06:10→18:00)
[2019-10-29] MEDS ORDERED: POTASSIUM CHLORIDE 20 MEQ TAB CR PO STA (06:30)
--- NOTE | 2019-10-29 07:22 | NUR ---
ASSUMED CARE. PATIENT RESTING IN BED. AAOX3. ACYANOTIC. NO DISTRESS NOTED. BED LOW. SIDE RAILS UP X2. CALL LIGHT IN REACH.
[2019-10-29] MEDS: INSULIN REGULAR, HUMAN 100 UNIT/1 ML 3ML VIAL SQ SCH ×4 (07:30→21:00)
[2019-10-29] MEDS: INSULIN GLARGINE 100 UNITS/ML VIAL SQ SCH ×2 (08:33→21:30)
[2019-10-29] MEDS: CYANOCOBALAMIN INJ 1,000 MCG/ML VIAL IM SCH (08:46)
[2019-10-29] MEDS: IRON SUCROSE 100 MG in SODIUM CHLORIDE 0.9% 100 ML 100 ML IV SCH (08:46)
[2019-10-29] MEDS: PANTOPRAZOLE 40 MG 10ML VIAL IV SCH ×2 (08:46→16:36)
[2019-10-29] MEDS: ACETAMINOPHEN 325 MG TAB PO PRN ×2 (08:47→15:26)
[2019-10-29] MEDS: POTASSIUM CHLORIDE 20 MEQ TAB CR PO SCH (11:26)
--- NOTE | 2019-10-29 12:16 | NUR ---
ALBUMIN ADMINISTERED IV BUT STOPPED AT APPROXIMATELY 1200 DUE TO SIKH/CULTURAL BELIEFS. PROVIDED PATIENT WITH EDUCATION ON ALBUMIN PURPOSE AND INFORMED PATIENT THAT IT IS COMPOSED OF BLOOD PRODUCTS. PATIENT REQUESTS THE DISCONTINUATION OF ALBUMIN.
[2019-10-29] MEDS: DIPHENOXYLATE/ATROPINE TAB PO PRN ×2 (16:53→21:30)
[2019-10-29] MEDS: ZOLPIDEM TARTRATE 5 MG TAB PO PRN (21:30)
[2019-10-30] VITALS (8 sets, daily range): BP systolic 112–131; BP diastolic 69–84
[2019-10-30] MEDS: ALBUMIN 25% 25GM 100ML 0.25 GM/ML BTL IV SCH (00:15)
--- NOTE | 2019-10-30 02:09 | Progress Note ---
DATE: 10/29/2019 Cardiology Progress Note SUBJECTIVE: No major events. OBJECTIVE: VITAL SIGNS: T-max is 100.5, pulse 94, respiratory rate 18, blood pressure 144/83, saturating 99% on room air. GENERAL: Well developed, well nourished, in no acute distress. CARDIOVASCULAR: Regular rate and rhythm. No murmurs, rubs, or gallops. LUNGS: Clear to auscultation anteriorly. ABDOMEN: Soft. Mildly tender. Nondistended. NEURO AND PSYCH: Alert and oriented to person, place, and time. Normal affect. INPATIENT MEDICATIONS: Reviewed. LABORATORY DATA: Reviewed. Hemoglobin 7.9. TELEMETRY DATA: Reviewed, shows normal sinus rhythm. ASSESSMENT: Acute thrombosis of celiac and SMA, resulting in bowel ischemia, now status post extensive bowel resection. PLAN: Primary team addressing nutritional deficiencies, will need long-term anticoagulation. If there is no bleeding issues, given drop in hemoglobin, currently holding Lovenox, resume as soon as clinical status is improved. Thank you for this consult. We will continue to follow. MD SAPNA Viera/ABRRERAL /[id number]
[2019-10-30] MEDS: LACTATED RINGER'S 1,000 ML IV SCH ×4 (04:20→20:50)
[2019-10-30] MEDS: ACETAMINOPHEN 325 MG TAB PO PRN (04:56)
[2019-10-30 06:04] LABS: BLOOD UREA NITROGEN < 5 mg/dL (7-26); CALCIUM 8.3 mg/dL (8.4-10.2); CARBON DIOXIDE 27 mmol/L (22-29); CHLORIDE 100 mmol/L (98-107); EST GLOMERULAR FILTRATION RATE > 60 ML/MIN (60-); GLUCOSE 98 mg/dL (74-118); SODIUM 137 mmol/L (136-145)
[2019-10-30 06:11] LABS: BUN/CREATININE RATIO 8 (6-25)
[2019-10-30] MEDS ORDERED: POTASSIUM CHLORIDE 20MEQ/100ML 200 ML IV ONE (06:45)
--- NOTE | 2019-10-30 07:00 | NUR ---
bedside shift report received from PM nurse; pt resting, easily aroused, no signs of distress. in stable condition. all safety measures in place.
[2019-10-30 07:15] LABS: BASOPHILS % 0.3 % (0.0-1.0); EOSINOPHILS % 0.5 % (0.0-6.0); HEMATOCRIT 23.6 % (34.2-44.1); HEMOGLOBIN 7.6 g/dL (12.0-16.0); LYMPHOCYTES # (AUTO) 1.1 (1.0-3.2); LYMPHOCYTES % 17.4 % (18.0-39.1); MEAN CORPUSCULAR HEMOGLOBIN 28.1 pg (28-32); MEAN CORPUSCULAR HGB CONC 32.2 g/dL (31-35); MEAN CORPUSCULAR VOLUME 87.4 fL (81-99); MONOCYTES # (AUTO) 0.5 (0.2-0.8); MONOCYTES % 8.2 % (4.4-11.3); NEUTROPHILS # (AUTO) 4.6 (2.1-6.9); NEUTROPHILS % 72.8 % (38.7-80.0); PLATELET COUNT 393 x10e3/uL (140-360)
[2019-10-30] MEDS: INSULIN REGULAR, HUMAN 100 UNIT/1 ML 3ML VIAL SQ SCH ×4 (07:30→20:46)
--- NOTE | 2019-10-30 07:44 | Progress Note ---
DATE: SUBJECTIVE: A 49-year-old female who came in with acute ischemic colitis, status post resection. Currently, patient is stable. No chest pain. No shortness of breath. Lovenox has been held secondary to bleed. OBJECTIVE: VITAL SIGNS: Temperature is elevated at 100, pulse of 94, respirations 16, blood pressure is 124/79. HEENT: Normocephalic, atraumatic. Pupils are reactive. CVS: S1 and S2 normal. Regular rhythm. ABDOMEN: Nontender, nondistended. EXTREMITIES: No clubbing, no cyanosis, no edema. MEDICATIONS: LR at 125 mL an hour, insulin glargine q.12 hours, pantoprazole 40 mg IV b.i.d. She is getting iron sucrose replacement and also vitamin B12 replacement, hydralazine 10 mg q.4 hours as needed. She also had albumin 25% 25 g x4 doses. LABORATORY VALUES: Hemoglobin is 7.9 and 5.2. Chemistries: Potassium is low at 3.0 today. ASSESSMENT: Ms. Bentley with: 1. Acute thrombosis of the celiac and superior mesenteric artery ischemia. 2. Hyperlipidemia. 3. Diabetes mellitus. 4. Hypokalemia. 5. Hypertension. 6. Anemia, iron deficiency probably. PLAN: The plan will be to recheck her CBC, replace potassium. Further recommendation per clinical course. We will continue to monitor the patient along with the consultants. MD EVE MariaJ/MODL /[id number]
[2019-10-30] MEDS: INSULIN GLARGINE 100 UNITS/ML VIAL SQ SCH ×2 (09:55→21:15)
[2019-10-30] MEDS: IRON SUCROSE 100 MG in SODIUM CHLORIDE 0.9% 100 ML 100 ML IV SCH (10:04)
[2019-10-30] MEDS: PANTOPRAZOLE 40 MG 10ML VIAL IV SCH ×2 (10:06→17:52)
[2019-10-30] MEDS: CYANOCOBALAMIN INJ 1,000 MCG/ML VIAL IM SCH (10:06)
[2019-10-30] MEDS: POTASSIUM CHLORIDE 20 MEQ TAB CR PO SCH (10:06)
--- NOTE | 2019-10-30 17:00 | NUR ---
Nutrition Intervention Note RD Recommendation(s) for Physician: - Recommend adding 1500 ADA to GI Soft diet - Consider Glucerna Shake BID Plan of Care: RD following, monitoring for tolerance and adequacy. Nutrition reason for involvement: follow up RD Assessment 10/29: Follow up. Pt advanced to GI Soft diet 2 days ago, tolerating well. Pt eating 50-100% of meals per chart, pt reports good po intake. Pt denies any N/V/C/D, pt having frequent BMs now. Pt with no questions or concerns at time of visit. Will continue to monitor. 10/26: Follow up. Chart reviewed. Pt was advanced to a full liquid diet and reports she is tolerating the diet. It is recorded that pt has been consuming 50% of liquids. Recommend Glucerna BID for added nutrition. Will continue to monitor. 10/24: Follow up. NGT removed and advanced to CLD, pt tolerating diet with good intake. Pt with BM today. Diet and TPN rec's provided. Chart. reviewed. Will continue to monitor. 10/22: 49 YOM admitted for mesenteric ischemia requiring a laparotomy and colon resection for ischemic colitis on 10/19. Pt seen today per diet, NPO x 5 days. 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 Pt reports UBW of 164#, no wt loss noted. Pt denies any nausea currently. Pt reports being hungry, explained that until NGT removed she is unable to eat. All questions and concerns addressed at time of visit. Chart reviewed. TPN discussed with RN, Dr. Ny managing the pt at this time. Will continue to monitor. Principal Problems/Diagnoses: mesenteric ischemia, HTN, hyperglycemia PMH: uncontrolled DM, metabolic syndrome, PCOS, bipolar disorder, hyperlipidemia GI: LBM 10/29 x 3 Skin: abdominal incision Labs: 10/29: Na 137, K 3, BUN <5, Cr 0.6, Gluc 98, POC Gluc 97-170, Ca 8.3 10/26: Na 138, K 2.9, BUN <5, Glu 56, Ca 8.1 10/24: Na 140, K 2.5, BUN 5, Cr 0.6, Gluc 122, Ca 7.9, POC Gluc 85-191 10/22: Na 141, K 2.6, BUN 13, Cr 0.6, Gluc 55, POC Gluc 60-64 Meds: k-dur, IV iron, Vitamin B12, protonix, lantus, zofran, humulin, lomotil (prn) IVF: LR at 125 ml/hr Ht: 61 in Wt: 174 lb BMI: 32.9 kg/m2 IBW: 105lb Malnutrition Evaluation (10/23/19) The patient does not meet criteria for a specified degree of malnutrition at this time. Will re-evaluate at follow-up as appropriate. Energy intake: <50% of estimated energy requirements for >5 days Weight loss: No wt loss, UBW 164# Fat loss: None, ample tricep skinfold thickness Muscle loss: None, shoulder round Supporting Evidence: Fluid accumulation: none observed Functional Status: no changes Nutrition Prescription (Diet Order): GI Soft Estimated Nutritional Needs: 5453-5148 calories/day (22-25 kcal/kg IBW) 72-95 g protein/day (1.5-2 g pro/kg IBW) Diet Adequacy: meeting calorie needs, meeting protein needs Diet Tolerance: tolerating PO Diet Education Needs Assessment: Diet education not indicated, patient on temporary/transition diet. Nutrition Care Level: moderate Nutrition Diagnosis: Inadequate energy and protein intake related to mesenteric ischemia as evidenced by insufficient energy intake from diet compared to needs. Goal: Patient will meet 75-100% of estimated needs by follow up Progress: progressing Interventions: -CHO, fiber modified diet, Commercial beverage, Collaboration with other providers Monitoring/Evaluation: -Total energy intake, Total protein intake, Modified diet, Liquid supplement, Weight change Signed: Doreen Guillermo RD, LD, [facility]
--- NOTE | 2019-10-30 19:23 | NUR ---
RECEIVED THE PATIENT IN REPORT.LYEING IN THE BED.IV FLUID RUNNING.DENIED NEEDS THIS TIME.PHONE AND CALL LIGHT WITHIN REACH.INSTRUCTED TO CALL FOR ASSISTANCE NEEDED.
[2019-10-30] MEDS: ZOLPIDEM TARTRATE 5 MG TAB PO PRN (22:31)
[2019-10-31] VITALS (7 sets, daily range): BP systolic 110–126; BP diastolic 58–73
[2019-10-31] MEDS: DIPHENOXYLATE/ATROPINE TAB PO PRN ×2 (00:15→20:35)
[2019-10-31] MEDS: DIPHENOXYLATE/ATROPINE TAB PO SCH ×3 (05:01→18:02)
[2019-10-31 06:36] LABS: BLOOD UREA NITROGEN < 5 mg/dL (7-26); CALCIUM 8.7 mg/dL (8.4-10.2); CARBON DIOXIDE 26 mmol/L (22-29); CHLORIDE 101 mmol/L (98-107); CREATININE, SERUM 0.61 mg/dL (0.57-1.11); EST GLOMERULAR FILTRATION RATE > 60 ML/MIN (60-); GLUCOSE 104 mg/dL (74-118); SODIUM 137 mmol/L (136-145)
[2019-10-31 06:37] LABS: BUN/CREATININE RATIO 8 (6-25)
--- NOTE | 2019-10-31 06:55 | NUR ---
Bed side shift report given to oncoming Rn stable condition.
--- NOTE | 2019-10-31 06:55 | NUR ---
received bedside shift report from PM nurse; pt in stable condition.
[2019-10-31] MEDS: INSULIN REGULAR, HUMAN 100 UNIT/1 ML 3ML VIAL SQ SCH ×4 (07:30→20:04)
[2019-10-31] MEDS ORDERED: POTASSIUM CHLORIDE 10MEQ EA PO ONE (07:35)
[2019-10-31 07:45] LABS: BASOPHILS % 0.3 % (0.0-1.0); EOSINOPHILS # (AUTO) 0.1 (0.0-0.4); EOSINOPHILS % 0.7 % (0.0-6.0); HEMOGLOBIN 8.1 g/dL (12.0-16.0); LYMPHOCYTES # (AUTO) 1.5 (1.0-3.2); LYMPHOCYTES % 21.6 % (18.0-39.1); MEAN CORPUSCULAR HEMOGLOBIN 27.5 pg (28-32); MEAN CORPUSCULAR HGB CONC 31.2 g/dL (31-35); MEAN CORPUSCULAR VOLUME 88.1 fL (81-99); MONOCYTES # (AUTO) 0.8 (0.2-0.8); MONOCYTES % 12.1 % (4.4-11.3); NEUTROPHILS # (AUTO) 4.4 (2.1-6.9); NEUTROPHILS % 64.7 % (38.7-80.0); PLATELET COUNT 355 x10e3/uL (140-360); RED BLOOD COUNT 2.95 x10e6/uL (3.6-5.1); RED CELL DISTRIBUTION WIDTH 15.5 % (11.7-14.4)
--- NOTE | 2019-10-31 08:05 | Progress Note ---
DATE: SUBJECTIVE: A 49-year-old female with a history of ischemic colitis, who comes in status post multiple bowel resections. The patient is doing well. No complaints. Bowel movements are positive. She has been walking around. No chest pains. No shortness of breath. Medicines have been reviewed. OBJECTIVE: VITAL SIGNS: Temperature is 98.3, pulse of 91, respirations 16, blood pressure is 114/73. HEENT: Normocephalic and atraumatic. CVS: S1 and S2 normal. Regular rate and rhythm. ABDOMEN: Soft, nontender, nondistended. EXTREMITIES: No clubbing, no cyanosis, no edema. LABORATORY VALUES: Today's white count is 4.76, hemoglobin of 8, hematocrit of 25, and platelet count dropped to 64. Chemistry; sodium 137, potassium of 3, BUN of less than 5, creatinine 0.61, glucose has been 114. Path results are within normal limits of the small intestine and colon. The path result for the ileum shows visible luminal clot in the pericecal mesentery. ASSESSMENT: Ms. Blanchard with: 1. 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 2. Ischemic colitis. 3. Hyperlipidemia. 4. Currently thrombocytopenia. 5. Hypertension. 6. Anemia. PLAN: Continue with B12 replacement. Continue with iron replacement. We will repeat the platelets because there is sudden drop in the platelets. Continue to monitor the patient. Replace potassium if needed. Further recommendation per clinical course. Hematology, Surgery, and Cardiology on board. We will need to start her anticoagulation again, but we will check her platelet count again. MD EVE MariaJ/MODL /[id number]
[2019-10-31] MEDS: IRON SUCROSE 100 MG in SODIUM CHLORIDE 0.9% 100 ML 100 ML IV SCH (09:15)
[2019-10-31] MEDS: POTASSIUM CHLORIDE 20 MEQ TAB CR PO SCH (09:17)
[2019-10-31] MEDS: PANTOPRAZOLE 40 MG 10ML VIAL IV SCH ×2 (09:19→16:17)
[2019-10-31] MEDS: CYANOCOBALAMIN INJ 1,000 MCG/ML VIAL IM SCH (09:21)
[2019-10-31] MEDS: INSULIN GLARGINE 100 UNITS/ML VIAL SQ SCH ×2 (09:33→20:49)
--- NOTE | 2019-10-31 10:09 | Progress Note ---
DATE: Cardiology Progress Note SUBJECTIVE: The patient reports mild abdominal pain. No chest pain or shortness of breath. OBJECTIVE: VITAL SIGNS: Temperature is 99.0, heart rate is 85, respirations are 18, blood pressure is 118/64, and oxygen saturation is 99% on room air. GENERAL: Well-appearing, in no apparent distress. Alert and oriented x3. HEAD: Normocephalic, atraumatic. CARDIOVASCULAR: Regular rate and rhythm. LUNGS: Clear to auscultation. ABDOMEN: Soft, minimally tender, nondistended. NEUROLOGIC: No deficits noted. MEDICATIONS: Reviewed. LABORATORY DATA: Reviewed. Hemoglobin is 8.1, platelets are 355. Creatinine is 0.61. Telemetry monitoring was personally reviewed by myself and shows normal sinus rhythm without any arrhythmias. 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 Continue addressing the nutritional deficiencies. Maintain on telemetry. We will need to restart anticoagulation when okay with primary and surgical teams. Shady Lorenzo DO BM/MODL /[id number]
[2019-10-31] MEDS ORDERED: ONDANSETRON HCL 4 MG ORAL DISINTEGRATING TAB PO PRN (13:00)
[2019-10-31] MEDS: LACTATED RINGER'S 1,000 ML IV SCH ×2 (13:53→17:45)
--- NOTE | 2019-10-31 19:04 | NUR ---
RECEIVED THE PATIENT IN REPORT.LYEING IN THE BED.STABLE CONDITION.
[2019-10-31] MEDS: OLANZAPINE 5 MG TAB PO SCH (20:48)
[2019-11-01] VITALS (8 sets, daily range): BP systolic 101–117; BP diastolic 61–74
--- NOTE | 2019-11-01 00:20 | NUR ---
Assessment done.no resp.distress.no pain voiced.has diarrhea. is in the unit.received new orders.bed locked and in lowest position.phone and call light within reach.instructed to call for assistance as needed.
[2019-11-01] MEDS: LACTATED RINGER'S 1,000 ML IV SCH ×3 (02:39→17:01)
[2019-11-01 05:40] LABS: BASOPHILS % 0.4 % (0.0-1.0); EOSINOPHILS # (AUTO) 0.1 (0.0-0.4); HEMATOCRIT 27.9 % (34.2-44.1); HEMOGLOBIN 8.5 g/dL (12.0-16.0); LYMPHOCYTES # (AUTO) 2.5 (1.0-3.2); LYMPHOCYTES % 32.4 % (18.0-39.1); MEAN CORPUSCULAR HEMOGLOBIN 27.2 pg (28-32); MEAN CORPUSCULAR HGB CONC 30.5 g/dL (31-35); MEAN CORPUSCULAR VOLUME 89.4 fL (81-99); MONOCYTES # (AUTO) 0.9 (0.2-0.8); MONOCYTES % 12.1 % (4.4-11.3); NEUTROPHILS # (AUTO) 4.1 (2.1-6.9); NEUTROPHILS % 53.5 % (38.7-80.0); PLATELET COUNT 360 x10e3/uL (140-360); RED BLOOD COUNT 3.12 x10e6/uL (3.6-5.1); RED CELL DISTRIBUTION WIDTH 15.8 % (11.7-14.4)
[2019-11-01] MEDS: DIPHENOXYLATE/ATROPINE TAB PO SCH ×5 (05:53→23:58)
[2019-11-01 06:01] LABS: ANION GAP 12.7 mmol/L (8-16); BLOOD UREA NITROGEN 5 mg/dL (7-26); BUN/CREATININE RATIO 7 (6-25); CALCIUM 8.5 mg/dL (8.4-10.2); CARBON DIOXIDE 28 mmol/L (22-29); CHLORIDE 102 mmol/L (98-107); CREATININE, SERUM 0.71 mg/dL (0.57-1.11); EST GLOMERULAR FILTRATION RATE > 60 ML/MIN (60-); GLUCOSE 92 mg/dL (74-118); POTASSIUM 3.7 mmol/L (3.5-5.1); SODIUM 139 mmol/L (136-145)
--- NOTE | 2019-11-01 07:00 | NUR ---
RECEIVED PATIENT RESTING IN BED NO S/S OF DISTRESS. BED LOW, WHEELS LOCKED, SIDE RAILS X2. CALL LIGHT IN REACH WILL CONTINUE TO MONITOR PATIENT.
--- NOTE | 2019-11-01 07:01 | NUR ---
Bed side shift report given to oncoming Rn.stable condition.
[2019-11-01] MEDS: INSULIN REGULAR, HUMAN 100 UNIT/1 ML 3ML VIAL SQ SCH ×4 (07:30→21:00)
[2019-11-01] MEDS: PANTOPRAZOLE 40 MG 10ML VIAL IV SCH ×2 (08:53→17:01)
[2019-11-01] MEDS: CYANOCOBALAMIN INJ 1,000 MCG/ML VIAL IM SCH (08:53)
[2019-11-01] MEDS: POTASSIUM CHLORIDE 20 MEQ TAB CR PO SCH (08:53)
[2019-11-01] MEDS: IRON SUCROSE 100 MG in SODIUM CHLORIDE 0.9% 100 ML 100 ML IV SCH (08:53)
--- NOTE | 2019-11-01 08:53 | Progress Note ---
DATE: SUBJECTIVE: The patient is a 49-year-old female, who comes in with mesenteric ischemia, status post bowel resection. The patient is doing well. Had a diarrheal movement this morning and a lot of watery mucousy diarrhea. The patient had eaten at [employer] yesterday. No chest pain. No shortness of breath. No nausea. Diarrhea positive. OBJECTIVE: VITAL SIGNS: Temperature is 97.9, pulse of 87, respirations of 18, blood pressure is 101/63, and pulse oximetry 100%. HEENT: Normocephalic and atraumatic. No icterus present. CVS: S1 and S2 normal. Regular rate and rhythm. ABDOMEN: Nontender, nondistended. Surgical scar is normal. EXTREMITIES: No clubbing, no cyanosis, no edema. LABORATORY VALUES: White count is normal 7.74, hemoglobin of 8.5, hematocrit 27.9. Chemistries; sodium of 139, potassium of 3.7, BUN of 5, creatinine of 0.71. ASSESSMENT: Ms. Bentley with: 1. Acute thrombosis of the celiac artery and superior mesenteric artery. 2. Ischemic colitis. 3. Bowel resection. 4. Hyperlipidemia. 5. Hyperkalemia. 6. Hypertension and anemia. PLAN: Continue with current replacements. We can decrease the IV fluids, improvise on p.o. intake. No talk to surgeons on restarting anticoagulation. Did talk to case management of starting either Eliquis or Xarelto and needs for discharge will be arranged by Case Management. Further recommendation per clinical course. We will continue to monitor the patient. Physical therapy and ambulation have been advised. MD HERBERT Maria/BARRERAL /[id number]
[2019-11-01] MEDS: INSULIN GLARGINE 100 UNITS/ML VIAL SQ SCH ×2 (09:00→21:00)
--- NOTE | 2019-11-01 11:59 | Progress Note ---
DATE: SUBJECTIVE: The patient is feeling better. Tolerating oral intake. No significant abdominal pain. OBJECTIVE: VITAL SIGNS: Temperature is 97.2, heart rate is 87, respirations are 16, blood pressure is 108/61, oxygen saturation 96% on room air. GENERAL: Well-appearing, in no apparent distress. CARDIOVASCULAR: Regular rate and rhythm. ABDOMEN: Soft, minimally tender, nondistended. EXTREMITIES: No edema. LABORATORY DATA: Reviewed. Her hemoglobin appears to be stable at 8.5. Creatinine is normal. CARDIOVASCULAR MEDICATIONS: Reviewed. 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 RECOMMENDATIONS: Continue supportive care and assessing the nutritional support. We will start Eliquis today. Otherwise, stable for discharge. Shady Lorenzo DO BM/MODL /[id number]
[2019-11-01] MEDS: APIXABAN 5 MG TABLET PO SCH (17:01)
--- NOTE | 2019-11-01 21:25 | NUR ---
PATIENT RESTING IN BED IN STABLE CONDITION AOX4, NO SIGNS OF RESPIRATORY DISTRESS NOTED. IV FLUIDS ARE RUNNING AT ORDERED RATE AND PATIENT VOICES NO PAIN AT THIS TIME. MIDLINE INCISION NOTED IN ABDOMINAL AREA, DRESSING IS CLEAN, DRY, AND INTACT. PATIENT VOICED THAT SHE STILL PRESENTS WATERY STOOLS AND WILL BE MEDICATED ORDERED. BED IS IN LOW POSITION, BOTH SIDE RAILS ARE UP, CALL LIGHT IS WITHIN REACH, WILL CONTINUE TO MONITOR.
[2019-11-01] MEDS: OLANZAPINE 5 MG TAB PO SCH (21:26)
[2019-11-01] MEDS: ZOLPIDEM TARTRATE 5 MG TAB PO PRN (21:28)
[2019-11-02] VITALS (8 sets, daily range): BP systolic 110–125; BP diastolic 61–69
[2019-11-02] MEDS: LACTATED RINGER'S 1,000 ML IV SCH ×4 (05:33→22:51)
[2019-11-02] MEDS: DIPHENOXYLATE/ATROPINE TAB PO SCH ×3 (06:16→17:17)
--- NOTE | 2019-11-02 07:00 | NUR ---
RECEIVED PATIENT AWAKE RESTING IN BED NO S/S OF DISTRESS. BED LOW, WHEELS LOCKED, SIDE RAILS X2. CALL LIGHT IN REACH WILL CONTINUE TO MONITOR PATIENT.
--- NOTE | 2019-11-02 07:17 | Progress Note ---
DATE: SUBJECTIVE: The patient is a 49-year-old female, who comes in with ischemic colitis, status post multiple resections. Currently, the patient is doing well, has been eating. No chest pains. No shortness of breath. No complaints. Abdominal pain is much relieved and diarrhea is very minimal. PHYSICAL EXAMINATION: VITAL SIGNS: Temperature is 99.2, pulse of 102, respirations of 19, blood pressure is 110/68, and pulse oximetry 97%. HEENT: Normocephalic and atraumatic. Pupils are reactive. CVS: S1 and S2 normal. Regular rate and rhythm. ABDOMEN: Soft, nontender, and nondistended. Surgical site wounds are normal. No drainage. EXTREMITIES: No clubbing, no cyanosis, no edema. LABORATORY VALUES: None done today. ASSESSMENT: 1. 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 2. Mesenteric and bowel ischemia. 3. Diabetes mellitus. 4. Hypertension. 5. Hyperlipidemia. 6. History of bipolar disease. PLAN: The patient has been restarted on anticoagulation. She is on apixaban 5 mg twice a day. DISPOSITION: We will keep her one more day, make sure the H and H are monitored, and in the morning discharge on apixaban, statins, back on her insulin and follow up with her primary care physician. Further information, look in the chart. MD HERBERT Maria/MODL /[id number]
[2019-11-02] MEDS: INSULIN REGULAR, HUMAN 100 UNIT/1 ML 3ML VIAL SQ SCH ×4 (07:30→21:00)
[2019-11-02] MEDS: APIXABAN 5 MG TABLET PO SCH ×2 (08:49→17:17)
[2019-11-02] MEDS: POTASSIUM CHLORIDE 20 MEQ TAB CR PO SCH (08:49)
[2019-11-02] MEDS: IRON SUCROSE 100 MG in SODIUM CHLORIDE 0.9% 100 ML 100 ML IV SCH (08:49)
[2019-11-02] MEDS: PANTOPRAZOLE 40 MG 10ML VIAL IV SCH ×2 (08:49→17:17)
[2019-11-02] MEDS: INSULIN GLARGINE 100 UNITS/ML VIAL SQ SCH ×2 (09:00→21:26)
--- NOTE | 2019-11-02 12:18 | NUR ---
Nutrition Intervention Note RD Recommendation(s) for Physician: - Recommend adding 1500 ADA to GI Soft diet - Continue Glucerna Shake BID Plan of Care: RD following, monitoring for tolerance and adequacy. Diet and supplement rec's. Nutrition reason for involvement: follow up RD Assessment 11/01: Follow up. Pt discussed during MDR. Pt continues to tolerate GI Soft diet, eating 50-100% of meals. RD ordered Glucerna shakes, pt drinking 100% BID. Pt with some diarrhea this am, denies any prior GI distress. Pt with no questions or concerns at time of visit. Will continue to monitor. 10/29: Follow up. Pt advanced to GI Soft diet 2 days ago, tolerating well. Pt eating 50-100% of meals per chart, pt reports good po intake. Pt denies any N/V/C/D, pt having frequent BMs now. Pt with no questions or concerns at time of visit. Will continue to monitor. 10/26: Follow up. Chart reviewed. Pt was advanced to a full liquid diet and reports she is tolerating the diet. It is recorded that pt has been consuming 50% of liquids. Recommend Glucerna BID for added nutrition. Will continue to monitor. 10/24: Follow up. NGT removed and advanced to CLD, pt tolerating diet with good intake. Pt with BM today. Diet and TPN rec's provided. Chart. reviewed. Will continue to monitor. 10/22: 49 YOM admitted for mesenteric ischemia requiring a laparotomy and colon resection for ischemic colitis on 10/19. Pt seen today per diet, NPO x 5 days. Pt reports good appetite and po intake RN TRIAGE. Pt reports UBW of 164#, no wt loss noted. Pt denies any nausea currently. Pt reports being hungry, explained that until NGT removed she is unable to eat. All questions and concerns addressed at time of visit. Chart reviewed. TPN discussed with RN, Dr. Ny managing the pt at this time. Will continue to monitor. Principal Problems/Diagnoses: mesenteric ischemia, HTN, hyperglycemia PMH: uncontrolled DM, metabolic syndrome, PCOS, bipolar disorder, hyperlipidemia GI: LBM 10/29 x 3 Skin: abdominal incision Labs: 10/31: Na 139, K 3.7, BUN 5, Cr 0.71, Gluc 92 10/29: Na 137, K 3, BUN <5, Cr 0.6, Gluc 98, POC Gluc 97-170, Ca 8.3 10/26: Na 138, K 2.9, BUN <5, Glu 56, Ca 8.1 10/24: Na 140, K 2.5, BUN 5, Cr 0.6, Gluc 122, Ca 7.9, POC Gluc 85-191 10/22: Na 141, K 2.6, BUN 13, Cr 0.6, Gluc 55, POC Gluc 60-64 Meds: kcl, IV iron, Vitamin B12, protonix, lantus, zofran, humulin IVF: LR at 125 ml/hr Ht: 61 in Wt: 174 lb BMI: 32.9 kg/m2 IBW: 105lb Malnutrition Evaluation (10/23/19) The patient does not meet criteria for a specified degree of malnutrition at this time. Will re-evaluate at follow-up as appropriate. Energy intake: <50% of estimated energy requirements for >5 days Weight loss: No wt loss, UBW 164# Fat loss: None, ample tricep skinfold thickness Muscle loss: None, shoulder round Supporting Evidence: Fluid accumulation: none observed Functional Status: no changes Nutrition Prescription (Diet Order): GI Soft Estimated Nutritional Needs: 8983-9917 calories/day (22-25 kcal/kg IBW) 72-95 g protein/day (1.5-2 g pro/kg IBW) Diet Adequacy: meeting calorie needs, meeting protein needs Diet Tolerance: tolerating PO Diet Education Needs Assessment: Diet education not indicated, patient on temporary/transition diet. Nutrition Care Level: moderate Nutrition Diagnosis: Inadequate energy and protein intake related to mesenteric ischemia as evidenced by insufficient energy intake from diet compared to needs. Goal: Patient will meet 75-100% of estimated needs by follow up Progress: progressing Interventions: -CHO, fiber modified diet, Commercial beverage, Collaboration with other providers Monitoring/Evaluation: -Total energy intake, Total protein intake, Modified diet, Liquid supplement, Weight change Signed: Doreen Guillermo RD, LD, [facility]
[2019-11-02] MEDS: ACETAMINOPHEN 325 MG TAB PO PRN ×2 (12:48→18:15)
--- NOTE | 2019-11-02 12:50 | NUR ---
Pt. expressed no spiritual or emotional concerns at this time. [facility] provided hospitality and information on how to reach mine car mechanic, if needed. No need to follow at this time. AMELIE LEONG [facility]ual [facility] Department O: [phone]
[2019-11-02] MEDS: DICYCLOMINE HCL 20 MG TAB PO SCH ×3 (15:23→21:25)
--- NOTE | 2019-11-02 21:20 | NUR ---
PATIENT RESTING IN BED IN STABLE CONDITION AOX4, NO SIGNS OF RESPIRATORY DISTRESS NOTED. IV FLUIDS ARE RUNNING AT ORDERED RATE AND PATIENT VOICES NO PAIN AT THIS TIME. MIDLINE INCISION NOTED IN ABDOMINAL AREA, DRESSING IS CLEAN, DRY, AND INTACT. PATIENT VOICED THAT WATERY STOOLS HAVE CEASED, BUT ABDOMINAL PAIN HAD OCCURRED EARLIER IN SHIFT AND WAS MEDICATED ORDERED. BED IS IN LOW POSITION, BOTH SIDE RAILS ARE UP, CALL LIGHT IS WITHIN REACH, WILL CONTINUE TO MONITOR.
[2019-11-02] MEDS: OLANZAPINE 5 MG TAB PO SCH (21:25)
[2019-11-02] MEDS: ZOLPIDEM TARTRATE 5 MG TAB PO PRN (21:25)
[2019-11-03 00:02] VITALS: BP_SYST 116; BP_SYST 127; BP_DIAS 61; BP_DIAS 71
[2019-11-03] MEDS: DIPHENOXYLATE/ATROPINE TAB PO SCH ×3 (00:07→13:14)
[2019-11-03 04:00] VITALS: BP 120/67
[2019-11-03 05:53] LABS: BASOPHILS % 0.3 % (0.0-1.0); EOSINOPHILS % 0.1 % (0.0-6.0); HEMATOCRIT 28.4 % (34.2-44.1); HEMOGLOBIN 8.7 g/dL (12.0-16.0); MEAN CORPUSCULAR HEMOGLOBIN 26.8 pg (28-32); MEAN CORPUSCULAR HGB CONC 30.6 g/dL (31-35); MEAN CORPUSCULAR VOLUME 87.4 fL (81-99); MONOCYTES # (AUTO) 0.6 (0.2-0.8); MONOCYTES % 7.2 % (4.4-11.3); NEUTROPHILS # (AUTO) 6.2 (2.1-6.9); NEUTROPHILS % 70.1 % (38.7-80.0); PLATELET COUNT 382 x10e3/uL (140-360); RED BLOOD COUNT 3.25 x10e6/uL (3.6-5.1); RED CELL DISTRIBUTION WIDTH 15.8 % (11.7-14.4)
[2019-11-03 06:39] LABS: ANION GAP 13.7 mmol/L (8-16); BLOOD UREA NITROGEN 8 mg/dL (7-26); BUN/CREATININE RATIO 14 (6-25); CALCIUM 8.8 mg/dL (8.4-10.2); CARBON DIOXIDE 29 mmol/L (22-29); CHLORIDE 97 mmol/L (98-107); CREATININE, SERUM 0.57 mg/dL (0.57-1.11); EST GLOMERULAR FILTRATION RATE > 60 ML/MIN (60-); GLUCOSE 98 mg/dL (74-118); POTASSIUM 3.7 mmol/L (3.5-5.1); SODIUM 136 mmol/L (136-145)
[2019-11-03] MEDS: INSULIN REGULAR, HUMAN 100 UNIT/1 ML 3ML VIAL SQ SCH ×2 (07:30→11:30)
[2019-11-03 08:00] VITALS: BP 109/65
[2019-11-03 08:03] VITALS: BP 109/65
[2019-11-03] MEDS: DICYCLOMINE HCL 20 MG TAB PO SCH ×2 (08:14→13:14)
[2019-11-03] MEDS: APIXABAN 5 MG TABLET PO SCH (08:15)
[2019-11-03] MEDS: POTASSIUM CHLORIDE 20 MEQ TAB CR PO SCH (08:15)
[2019-11-03] MEDS: PANTOPRAZOLE 40 MG 10ML VIAL IV SCH (08:21)
[2019-11-03] MEDS: IRON SUCROSE 100 MG in SODIUM CHLORIDE 0.9% 100 ML 100 ML IV SCH (08:24)
--- NOTE | 2019-11-03 08:36 | Progress Note ---
DATE: SUBJECTIVE: This is a 49-year-old female who came in with mesenteric ischemia, went to have two resections, multiple resection of her bowels. The patient is status post resection, doing well back on anticoagulation. Blood work has been stabilized. CBC and potassium have stabilized too. Currently, no complaints. Eating well. No chest pain or shortness of breath. No nausea. No vomiting. Diarrhea has dissipated much better for the last one day. OBJECTIVE: VITAL SIGNS: Temperature is 99.6, pulse of 102, blood pressure is 120/67, pulse oximetry of 98%. HEENT: Normocephalic, atraumatic. Pupils reactive. CVS: S1 and S2 normal. Regular rate and rhythm. ABDOMEN: Nontender, nondistended. Surgical sites are very well, clean. EXTREMITIES: No clubbing, no cyanosis, no edema. LABORATORY VALUES: Today's white count is 8.89, hemoglobin of 8.7 and hematocrit of 28.4, and platelet count of 382. Chemistry shows sodium of 136, potassium of 3.7, BUN of 8, creatinine 0.57. Glucoses have been running in the 105 to 130 range. Pathology as mentioned above. Surgical margins were clear. No defects. The patient did show thrombus in the mesenteric vessel. ASSESSMENT: Ms. Sheree Blanchard with: 1. 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 2. Mesenteric and bowel ischemia. 3. Vitamin B12 deficiency. 4. Diabetes mellitus. 5. Hypertension. 6. Hyperlipidemia. 7. Bipolar disease. The patient is on apixaban 5 mg twice a day, will be discharged on 5 mg twice a day. The patient is also started on atorvastatin 10 mg at nighttime. Other discharge medications include insulin, glargine 12 units twice a day while has been given, pantoprazole 40 mg once a day, Zofran 4 mg as needed for nausea, atorvastatin 10 mg once a day at nighttime, Bentyl 20 mg as needed for bloating, glucometer has been provided and vitamin B12 prescription has been written and Lomotil for severe diarrhea has been written too. The patient also has been put on ferrous sulfate 325 mg once a day for iron deficiency anemia. For further information, look in the chart, the patient will be discharged pending surgical review, surgery and Cardiology followup. MD EVE MariaJ/MODL /[id number]
[2019-11-03] MEDS ORDERED: CYANOCOBALAMIN INJ 1,000 MCG/ML VIAL IM SCH (09:00)
[2019-11-03] MEDS: INSULIN GLARGINE 100 UNITS/ML VIAL SQ SCH (09:07)
[2019-11-03] MEDS: LACTATED RINGER'S 1,000 ML IV SCH (09:45)
[2019-11-03 11:39] VITALS: BP 126/65
[2019-11-03] MEDS ORDERED: FERROUS SULFAT324 MG (11:44)
[2019-11-03] MEDS ORDERED: LANTUS 3ML100 UNITS/ SQ (11:46)
[2019-11-03] MEDS ORDERED: PANTOPRAZOLE SO40 MG PO (11:47)
[2019-11-03] MEDS ORDERED: ELIQUIS5 M1 (11:47)
[2019-11-03] MEDS ORDERED: ZOFRAN4 MG PO (11:48)
[2019-11-03] MEDS ORDERED: ATORVASTATIN CA10 MG PO (11:49)
[2019-11-03] MEDS ORDERED: BENTYL10 MG/1 ML PO (11:49)
[2019-11-03] MEDS ORDERED: LOMOTIL TABLET1 EACH PO (11:50)
[2019-11-03] MEDS ORDERED: B-121000 MCG (11:50)
== END 2019-11-03 15:53 | disposition home or self-care (01) | DRG 330 ==
LOC: ER 22:05 → ERHOLD 10-18 00:57 → IMCU 10-18 02:05 → MED/SURG3 10-18 17:38 → ICU 10-19 09:59 → MED/SURG 10-22 16:42
PROVIDERS: ADMIT Family Medicine; ATTEND Family Medicine
PROC: 0DBK0ZZ Excision of Ascending Colon, Open Approach (ICD-10-PCS; 2019-10-19)
PROC: 0DBB0ZZ Excision of Ileum, Open Approach (ICD-10-PCS; 2019-10-19)
PROC: 04C53ZZ Extirpation of Matter from Superior Mesenteric Artery, Percutaneous Approach (ICD-10-PCS; 2019-10-19)
PROC: B4101ZZ Fluoroscopy of Abdominal Aorta using Low Osmolar Contrast (ICD-10-PCS; 2019-10-19)
PROC: 0DTH0ZZ Resection of Cecum, Open Approach (ICD-10-PCS; principal; 2019-10-19 17:30)
PROC: 0DBA0ZZ Excision of Jejunum, Open Approach (ICD-10-PCS; 2019-10-20)
DX: K55.029 Acute infarction of small intestine, extent unspecified (principal); I74.8 Embolism and thrombosis of other arteries; I77.4 Celiac artery compression syndrome; E87.2 Acidosis; K91.2 Postsurgical malabsorption, not elsewhere classified; K56.7 Ileus, unspecified; K55.039 Acute (reversible) ischemia of large intestine, extent unspecified; N30.10 Interstitial cystitis (chronic) without hematuria; I10 Essential (primary) hypertension; F31.9 Bipolar disorder, unspecified; E11.65 Type 2 diabetes mellitus with hyperglycemia; K21.0 Gastro-esophageal reflux disease with esophagitis; E78.5 Hyperlipidemia, unspecified; Z83.3 Family history of diabetes mellitus; Z82.49 Family history of ischemic heart disease and other diseases of the circulatory system; T38.3X6A Underdosing of insulin and oral hypoglycemic [antidiabetic] drugs, initial encounter; Z91.120 Patient's intentional underdosing of medication regimen due to financial hardship; K63.89 Other specified diseases of intestine; E87.6 Hypokalemia; D50.9 Iron deficiency anemia, unspecified; E83.42 Hypomagnesemia; D69.6 Thrombocytopenia, unspecified; E53.8 Deficiency of other specified B group vitamins
CPT/HCPCS: 36246; 36415; 71045; 74174; 74177; 75625; 80048; 80053; 80061; 81001; 82550; 82553; 82607; 82728; 82746; 82948; 83036; 83540; 83605; 83690; 83735; 84425; 84466; 84484; 84702; 85007; 85025; 85027; 85045; 85379; 85730; 87635; 88307; 93005; 93306; 94660; 96360; 96372; 97139; 99152; 99153; 99251; 99284; C1757; C1760; C1887; J0330; J0360; J1100; J1170; J1200; J1644; J1650; J1750; J1756; J1815; J1817; J2001; J2250; J2270; J2370; J2405; J2543; J3010; J3420; J3475; J3480; J7030; J7040; J7050; J7121; J7799; P9047; Q9967

== ENCOUNTER 2020-06-09 04:44 | Emergency (ER) | payer OTHER, SELFPAY ==
[~2020-06-09] VITALS: Ht 307.3 cm; Wt 78.9 kg
[~2020-06-09 04:44] MED LIST: ATORVASTATIN CA10 MG PO; B-121000 MCG; BENTYL10 MG/1 ML PO; ELIQUIS5 M1; FERROUS SULFAT324 MG; LANTUS 3ML100 UNITS/ SQ; LOMOTIL TABLET1 EACH PO; PANTOPRAZOLE SO40 MG PO; ZOFRAN4 MG PO
[2020-06-09 05:07] LABS: BASOPHILS % 0.3 % (0.0-1.0); EOSINOPHILS # (AUTO) 0.1 (0.0-0.4); EOSINOPHILS % 0.7 % (0.0-6.0); HEMATOCRIT 40.7 % (34.2-44.1); HEMOGLOBIN 13.2 g/dL (12.0-16.0); LYMPHOCYTES # (AUTO) 2.8 (1.0-3.2); MEAN CORPUSCULAR HEMOGLOBIN 28.1 pg (28-32); MEAN CORPUSCULAR HGB CONC 32.4 g/dL (31-35); MEAN CORPUSCULAR VOLUME 86.6 fL (81-99); MONOCYTES # (AUTO) 0.4 (0.2-0.8); MONOCYTES % 3.7 % (4.4-11.3); NEUTROPHILS # (AUTO) 6.8 (2.1-6.9); NEUTROPHILS % 66.8 % (38.7-80.0); PLATELET COUNT 235 x10e3/uL (140-360); RED CELL DISTRIBUTION WIDTH 12.7 % (11.7-14.4)
[2020-06-09 05:09] LABS: CLARITY,URINE CLEAR (CLEAR); COLOR,URINE YELLOW (YELLOW); KETONES,URINE NEGATIVE (NEGATIVE); LEUKOCYTE ESTERASE ,URINE NEGATIVE (NEGATIVE); NITRITE,URINE NEGATIVE (NEGATIVE); PROTEIN,URINE DIPSTICK TRACE (NEGATIVE); URINE UROBILINOGEN 0.2 mg/dL (0.2 - 1)
[2020-06-09 05:10] LABS: PREGNANCY TEST, URINE NEGATIVE (NEGATIVE)
[2020-06-09 05:23] LABS: EPITHELIAL CELLS,URINE FEW /LPF
[2020-06-09 05:24] LABS: BACTERIA,URINE RARE /HPF
[2020-06-09 05:27] LABS: AMPHETAMINES SCREEN,URINE NEGATIVE (NEGATIVE); BENZODIAZEPINES SCREEN,URINE NEGATIVE (NEGATIVE); PHENCYCLIDINE SCREEN,URINE NEGATIVE (NEGATIVE)
[2020-06-09 05:28] LABS: ALANINE AMINOTRANSFERASE 30 IU/L (0-55); ALBUMIN 4.2 g/dL (3.5-5.0); ALBUMIN/GLOBULIN RATIO 1.3 (0.8-2.0); ALKALINE PHOSPHATASE 109 IU/L (40-150); ANION GAP 13.2 mmol/L (8-16); BLOOD UREA NITROGEN 10 mg/dL (7-26); BUN/CREATININE RATIO 11 (6-25); CALCIUM 9.2 mg/dL (8.4-10.2); CARBON DIOXIDE 31 mmol/L (22-29); CHLORIDE 101 mmol/L (98-107); CREATININE, SERUM 0.93 mg/dL (0.57-1.11); EST GLOMERULAR FILTRATION RATE > 60 ML/MIN (60-); GLUCOSE 157 mg/dL (74-118); POTASSIUM 3.2 mmol/L (3.5-5.1); SODIUM 142 mmol/L (136-145)
[2020-06-09] MEDS ORDERED: SODIUM CHLORIDE 0.9% 1000ML 1,000 ML IV STA (05:37)
[2020-06-09] MEDS ORDERED: ONDANSETRON HCL INJ 2MG/ML 2ML 2 MG/ML VIAL IV STA (07:24)
[2020-06-09] MEDS ORDERED: MORPHINE SULFATE 2 MG/ML SYR 1ML IV STA (07:24)
[2020-06-09] MEDS ORDERED: PANTOPRAZOLE 40 MG 10ML VIAL IV STA (07:24)
[2020-06-09] MEDS ORDERED: KCL 20MEQ/.9 SOD CHL 1,000 ML IV ONE (07:30)
[2020-06-09] MEDS ORDERED: POTASSIUM CHLORIDE 20 MEQ TAB CR PO NR (11:30)
== END 2020-06-09 11:40 | disposition home or self-care (01) ==
LOC: ER 05:14
DX: R10.12 Left upper quadrant pain (principal); R11.2 Nausea with vomiting, unspecified; E11.65 Type 2 diabetes mellitus with hyperglycemia; F31.9 Bipolar disorder, unspecified; Z98.0 Intestinal bypass and anastomosis status
CPT/HCPCS: 36415; 74174; 76705; 80053; 80307; 81001; 81025; 83690; 85025; 87086; 99284; C9113; J2270; J2405; J7030

== ENCOUNTER 2022-10-24 22:17 | Emergency (ER) | payer OTHER, SELFPAY ==
[~2022-10-24] VITALS: Ht 154.9 cm; Wt 70.3 kg
[2022-10-24] MEDS ORDERED: SODIUM CHLORIDE 0.9% 1000ML 1,000 ML IV STA (22:26)
[2022-10-24] MEDS ORDERED: ACETAMINOPHEN 325 MG TAB PO STA (22:26)
[2022-10-24] MEDS ORDERED: KETOROLAC TROMETHAMINE 30 MG/ML VIAL IV STA (22:30)
[2022-10-24 22:45] LABS: HEMATOCRIT 35.2 % (34.2-44.1); HEMOGLOBIN 11.2 g/dL (12.0-16.0); MEAN CORPUSCULAR VOLUME 83.6 fL (81-99); RED BLOOD COUNT 4.21 x10e6/uL (3.6-5.1)
[2022-10-24 22:46] LABS: BASOPHILS # (AUTO) 0.1 (0.0-0.1); BASOPHILS % 0.5 % (0.0-1.0); EOSINOPHILS # (AUTO) 0.1 (0.0-0.4); EOSINOPHILS % 1.3 % (0.0-6.0); LYMPHOCYTES % 17.7 % (18.0-39.1); MEAN CORPUSCULAR HEMOGLOBIN 26.6 pg (28-32); MEAN CORPUSCULAR HGB CONC 31.8 g/dL (31-35); MONOCYTES # (AUTO) 0.5 (0.2-0.8); MONOCYTES % 4.7 % (4.4-11.3); NEUTROPHILS # (AUTO) 8.5 (2.1-6.9); NEUTROPHILS % 75.6 % (38.7-80.0); PLATELET COUNT 313 x10e3/uL (140-360); RED CELL DISTRIBUTION WIDTH 13.8 % (11.7-14.4)
[2022-10-24 23:03] LABS: ALBUMIN 3.5 g/dL (3.5-5.0); ALBUMIN/GLOBULIN RATIO 1.1 (0.8-2.0); ANION GAP 14.4 mmol/L (8-16); CALCIUM 9.5 mg/dL (8.4-10.2); CREATININE, SERUM 1.36 mg/dL (0.57-1.11); POTASSIUM 3.4 mmol/L (3.5-5.1)
[2022-10-24 23:13] LABS: CLARITY,URINE CLEAR (CLEAR); COLOR,URINE YELLOW (YELLOW); KETONES,URINE NEGATIVE (NEGATIVE); LEUKOCYTE ESTERASE ,URINE NEGATIVE (NEGATIVE); NITRITE,URINE NEGATIVE (NEGATIVE); PROTEIN,URINE DIPSTICK NEGATIVE (NEGATIVE); URINE UROBILINOGEN 0.2 mg/dL (0.2 - 1)
[2022-10-24 23:14] LABS: BACTERIA,URINE FEW /HPF; EPITHELIAL CELLS,URINE FEW /LPF; RBC,URINE 0-5 /HPF (0-5)
[2022-10-24] MEDS ORDERED: Morphine 4mg INJECTION 4 MG/ML INJ IV STA (23:34)
[2022-10-24] MEDS ORDERED: ONDANSETRON HCL INJ 2MG/ML 2ML 2 MG/ML VIAL IV STA (23:34)
[2022-10-25 04:59] VITALS: BP 119/78
== END 2022-10-25 05:04 | disposition other institution (70) ==
LOC: ER 22:20
DX: R10.30 Lower abdominal pain, unspecified (principal); K80.20 Calculus of gallbladder without cholecystitis without obstruction; K57.30 Diverticulosis of large intestine without perforation or abscess without bleeding; E11.65 Type 2 diabetes mellitus with hyperglycemia; F31.9 Bipolar disorder, unspecified; Z20.822 Contact with and (suspected) exposure to COVID-19; N20.0 Calculus of kidney; N13.9 Obstructive and reflux uropathy, unspecified
CPT/HCPCS: 36415; 74176; 80053; 81001; 83605; 85025; 87040; 99284; J1885; J2270; J2405; J2543 ×2; J7030; U0002